=== PATIENT | female | born 1945 | race Caucasian/White ===

== ENCOUNTER → 2017-04-22 | Outpatient (CLI) | payer OTHER ==
[2013-08-13 09:34] VITALS: BP 130/98
[2017-04-22 15:38] LABS: BASOPHILS # (AUTO) 0.1 X10^3/uL (0.0-0.1); BASOPHILS % (AUTO) 0.7 % (0.2-1.0); EOSINOPHILS # (AUTO) 0.3 x10^3/uL (0.0-0.2); EOSINOPHILS % (AUTO) 3.1 % (0.9-2.9); HEMOGLOBIN 12.5 g/dL (12.0-16.0); LYMPHOCYTES # (AUTO) 3.3 X10^3/uL (1.3-2.9); LYMPHOCYTES % (AUTO) 29.5 % (21.0-51.0); MEAN CORPUSCULAR HGB CONC 32.8 g/dL (33.0-35.0); MEAN CORPUSCULAR VOLUME 85.4 fL (80.0-100.0); MEAN PLATELET VOLUME 7.7 fL (7.4-11.0); MONOCYTES # (AUTO) 0.8 x10^3/uL (0.3-0.8); MONOCYTES % (AUTO) 6.8 % (0.0-13.0); NEUTROPHILS # (AUTO) 6.8 x10^3/uL (2.2-4.8); NEUTROPHILS % (AUTO) 59.9 % (42.0-75.0); PLATELET COUNT 276 X10^3/uL (150.0-450.0); RED BLOOD COUNT 4.45 X10^6/uL (3.5-5.4); RED CELL DISTRIBUTION WIDTH 15.8 % (11.6-16.5); WHITE BLOOD COUNT 11.3 X10^3/uL (3.6-10.0)
[2017-04-22 15:48] LABS: ALANINE AMINOTRANSFERASE 16 Units/L (12-78); ALBUMIN 3.3 g/dL (3.4-5.0); ALKALINE PHOSPHATASE 87 Units/L (46-116); ASPARTATE AMINO TRANSFERASE 15 Units/L (15-37); BLOOD UREA NITROGEN 33 mg/dL (7-18); CALCIUM 9.4 mg/dL (8.5-10.1); CARBON DIOXIDE 26.1 mmol/L (21-32); CHLORIDE 102 mmol/L (98-107); CREATININE 1.61 mg/dL (0.55-1.02); GLUCOSE 99 mg/dL (65-99); SODIUM 134 mmol/L (136-145); TOTAL PROTEIN 8.2 g/dL (6.4-8.2); eGFR BLACK RACES 41 (>60); eGFR NON BLACK RACES 34 (>60)
[2017-04-22 16:33] LABS: ERYTHROCYTE SEDIMENTATION RATE 83 MM/HOUR (0-20)
--- NOTE | 2017-04-22 16:59 | RAD ---
HISTORY: Paroxysmally nocturnal dyspnea Study: PA and lateral chest Comparison: None Findings: The patient is status post median sternotomy and CABG. The heart is within normal limits in size. The thoracic aorta is calcified ectatic and dilated particular the arch. CT chest with contrast should b e considered for further evaluation of the thoracic aorta. The lungs are free of acute alveolar infil trates. There is elevation of the right hemidiaphragm and blunting of the right costophrenic angle wh ich could be due to fibrosis or E fusion. There is a rounded density projected over the thoracic spin e on the lateral view measuring 7.8 by 3.3 centimeters. This could represent loculated fluid or pleur al mass. This could also be evaluated with chest CT with contrast. IMPRESSION: Calcified ectatic and likely dilated thoracic aorta for which further evaluation with chest CT with c ontrast is recommended Pleural-based density overlying the thoracic spine on the lateral view which should also be evaluated with CT chest with contrast. Reported By:
--- NOTE | 2017-04-22 17:01 | CT ---
HISTORY: Mental status changes Study: CT brain without contrast Comparison: None Technique: Multiple axial images of the brain were obtained from the skull base to the vertex without administra tion of IV contrast. Automated dose control techniques were utilized. Findings: The ventricles are mildly enlarged and there is diffuse mild prominence of the cortical sulci. There is mild to moderate periventricular low density bilaterally. No intracranial hemorrhage or edema is s een and there is no extra-axial fluid collection or mass seen. The bones are intact. IMPRESSION: Mild atrophy and moderate chronic microischemic disease in the deep white matter with no acute intracranial abnormality seen. Reported By:
== END | disposition home or self-care (01) ==
LOC: RAD 15:00
PROVIDERS: ATTEND Nurse Practitioner Family
DX: I10 Essential (primary) hypertension (principal); R06.09 Other forms of dyspnea; R41.82 Altered mental status, unspecified; J98.4 Other disorders of lung
CPT/HCPCS: 36415; 70450; 71020; 80053; 85025; 85652; 86140

== ENCOUNTER → 2017-05-06 | Outpatient (CLI) | payer OTHER ==
[2013-08-13 09:34] VITALS: BP 130/98
[2017-05-06 08:32] LABS: CREATININE 1.51 mg/dL (0.55-1.02)
--- NOTE | 2017-05-06 09:43 | MRI ---
MRI Brain without contrast HISTORY: Headache, vomiting elevated blood pressure with amnesia Comparison:none available Technique: Multiplanar multi-sequence MRI of the brain was obtained utilizing standard departmental p rotocol. Sagittal and axial T1 weighted images were obtained. Axial T2 and flair weighted images we re performed as well. Axial diffusion weighted and ADC trace mapping was performed. Findings: Again noted is generalized cerebral atrophy with bilateral FLAIR and T2 signal hyperintensity surroun ding the ventricles and within the deep white matter bilaterally consistent with chronic microvascula r ischemic disease. The midline structures appear unremarkable. The evaluation of the brain parenchyma demonstrates no a bnormal signal characteristics to suggest intraparenchymal mass or hemorrhage. No extra-axial fluid collections are observed. The ventricular system appears symmetric and nondilated. The CP angle is normal in its appearance without brainstem mass or evidence for acoustic neuroma. The flow voids on both T1 and T2 weighted imaging appear unremarkable. Evaluation of the diffusion weighted imaging d oes not demonstrate abnormal signal characteristics to suggest acute ischemic change. The extracrani al structures are unremarkable. IMPRESSION: 1. Age related generalized cerebral atrophy with bilateral periventricular and deep white matter FLA IR and T2 signal hyperintensities most consistent with sequela of chronic microvascular ischemic dise ase. The remaining brain MRI is otherwise normal. Reported By:
--- NOTE | 2017-05-06 09:48 | CT ---
CT CHEST WITHOUT IV CONTRAST HISTORY: Suggestion of aneurysm on x-ray Comparison: CT 12/13/2014 Technique: Multiple axial images of the chest were obtained from the thoracic inlet to the upper abdo men. Dose reduction techniques including Automated Exposure Control (AEC) and adjustment of mA and kV were utlized. Findings: The evaluation of the mediastinal and vascular structures is diminished without the use of IV contras t. The heart is normal in size. No pericardial effusion. Severe 3 vessel coronary artery calcification . No suspicious lymph nodes. Ascending aorta measures 4.8 cm. Proximal descending thoracic aorta measu res 4.7 cm. These are stable since 12/13/2014. Partially visualized infrarenal abdominal aortic aneury sm measuring 5.4 cm. Stent appears to be in place. Redemonstration of loculated, thick-walled pleural fluid collection on series 3, image 39 along the p osterior right pleura measuring 8.3 x 4.5 cm, previously 8.4 x 3.4 cm. Airways are patent. No suspici ous pulmonary nodules or masses. Limited images of the upper abdomen are unremarkable. No aggressive osseous lesions. IMPRESSION: 1. Multiple foci of aneurysmal dilatation of the thoracic aorta as above . These are stable from 201 5 . 2. Stable loculated fluid collection in the posterior right chest since 2014. Reported By:
== END | disposition home or self-care (01) | DRG 948 ==
LOC: RAD 07:51
PROVIDERS: ATTEND Nurse Practitioner Family
DX: R41.3 Other amnesia (principal); R91.8 Other nonspecific abnormal finding of lung field; I71.2 Thoracic aortic aneurysm, without rupture
CPT/HCPCS: 36415; 70551; 71250; 82565; 84520; 95819

== ENCOUNTER 2017-05-18 13:19 | Emergency (ER) | payer OTHER ==
[2017-05-18 13:29] VITALS: BMI 24.0
--- NOTE | 2017-05-18 14:13 | DR.GENAD ---
HPI - PCP Primary Care Physician: Aaron - Complaint/Symptoms Chief Complaint Doctors Comments: Patient states that she has had HTN since 23 years of age, has been doin well until 1996 when she had ByPass surgery by Dr Parsons. Had had symptoms for five years prior to surgery. She was diagnosed with an aortic anurysm of the aorta had surgery and follow up two weeks; everything was fine. Patient states that she vomited x one this morning, stated that her BP was 200/189. She blurred vision nad a headache. She took one Goody Powder, headache went away. She reports that pulse and BP has been P72 and BP 130/89. [place] the intake her VS have not change. She has been worked up by Dr Florian to inclued EEG two weeks ago/ sleep study last week end. CT of brain two weeks ago Chest X ray. She stated that the only thing that she think of is that she is getting olded and things dont stay the black. Her blood pressure did not change during interview. Chief Complaint:: "I have been taking blood pressure medicine for a long time now. However, here recently it seems to be much higher than I am used to. She has been adjusting my medicine but it is still getting higher. This morning it was 200/189 so I got really affraid. I talked to Mrs. Quiroga and she told me to come on to the ER." Self Treatment fo Chief Complaint: Patient is taking RX for blood pressure: Bisoprolol 10MG BID. Bisoprolol 5MG BID. Clonodine Patches - Patient does not know the MG but has 2 on. - Source History Provided: Patient - Mode of Arrival Mode of Arrival: Ambulatory - Timing Onset of Chief Complaint: 05/04/17 PMH - PMH Past Medical History: Yes Past Medical History: Angina, Coronary Artery Disease, Hypertension, Dyslipidemia, Depression, Anxiety, Anemia, GERD, Arthritis Past Surgical History: Yes Surgical History: Angioplasty/Stents, CABG/Valve Surgery, Tonsillectomy - Family History History of Family Medical Conditions: Yes Family Medical History: Cancer - Social History Does patient currently use any type of tobacco product: No Have you used tobacco products in the last 12 months: No Type of Tobacco Use: None Does any household member use tobacco: No Alcohol Use: None Do you use any recreational Drugs:: No Lives With: Alone Lives Where: Home - infectious screening In the last 2 months have you had wt loss of >10#?: NO Have you had fever, night sweats or hemotysis?: No Have you traveled outside the country in the last 6 months?: No Isolation: Standard ROS - Review of Systems Eyes: No Symptoms Reported ENTM: No Symptoms Reported Respiratoy: No Symptoms Reported Cardiovascular: No Symptoms Reported Gastrointestinal/Abdominal: No Symptoms Reported Genitourinary: No Symptoms Reported Neurological: No Symptoms Reported Musculoskeletal: No Symptoms Reported Integumentary: No Symptoms Reported Hematologic/Lymphatic: No Symptoms Reported Endocrine: No Symptoms Reported Psychiatric: No Symptoms Reported All Other Systems: Reviewed and Negative PE - Vital Signs Vitals: Temperature 97.6 F Pulse Rate 71 Respiratory Rate 18 Blood Pressure [Right Arm] 132/86 Blood Pressure [Left Arm] 132/82 Blood Pressure 198/114 O2 Sat by Pulse Oximetry 98 - General Limitations: No Limitations General Appearance: Alert - Head Head Exam: Normal Inspection, Atraumatic - Eyes Eye exam: Normal Appearance, PERRL, EOMI - ENT ENT Exam: Normal Exam External Ear Exam: Normal External Inspection TM/Canal Exam: Bilateral Normal Nose Exam: Normal Nose Exam Mouth Exam: Normal Inspection Throat Exam: Normal Inspection - Neck Neck Exam: Normal Inspection - Chest Chest Inspection: Normal Inspection - Respiratory Respiratory Exam: Normal Lung Sounds Bilat Respiratory Exam: Bilateral Clear to Auscultation - Cardiovascular Cardiovascular Exam: Regular Rate, Normal Rhythm - Abdominal Exam Abdominal Exam: Normal Inspection, Normal Bowel Sounds Abdominal Tenderness: negative: RUQ, RLQ, LUQ, LLQ, Epigastrium, Suprapubic, Diffuse, Mild, Moderate, Severe, Other - Extremities Extremities Exam: Normal Inspection, Full ROM - Back Back Exam: Normal Inspection, Full ROM - Neurologic Neurological Exam: Alert, Oriented X3, CN II-XII Intact - Psychiatric Psychiatric Exam: Normal Affect - Skin Skin Exam: Warm, Dry ROR - Labs Reviewed Result Diagrams: 05/18/17 14:34 05/18/17 14:34 Laboratory: WBC 11.5 X10^3/uL (3.6-10.0) H 05/18/17 14:34 RBC 4.61 X10^6/uL (3.5-5.4) 05/18/17 14:34 Hgb 13.1 g/dL (12.0-16.0) 05/18/17 14:34 Hct 39.2 % (36.0-47.0) 05/18/17 14:34 MCV 85.0 fL (80.0-100.0) 05/18/17 14:34 MCH 28.4 pg (27.0-34.0) 05/18/17 14:34 MCHC 33.4 g/dL (33.0-35.0) 05/18/17 14:34 RDW 16.0 % (11.6-16.5) 05/18/17 14:34 Plt Count 350 X10^3/uL (150.0-450.0) 05/18/17 14:34 MPV 7.3 fL (7.4-11.0) L 05/18/17 14:34 Neut % 64.9 % (42.0-75.0) 05/18/17 14:34 Lymph % 24.8 % (21.0-51.0) 05/18/17 14:34 [place] % 7.5 % (0.0-13.0) 05/18/17 14:34 Eos % 2.0 % (0.9-2.9) 05/18/17 14:34 Baso % 0.8 % (0.2-1.0) 05/18/17 14:34 Neut # 7.5 x10^3/uL (2.2-4.8) H 05/18/17 14:34 Lymph # 2.9 X10^3/uL (1.3-2.9) 05/18/17 14:34 [place] # 0.9 x10^3/uL (0.3-0.8) H 05/18/17 14:34 Eos # 0.2 x10^3/uL (0.0-0.2) 05/18/17 14:34 Baso # 0.1 X10^3/uL (0.0-0.1) 05/18/17 14:34 Absolute Nucleated RBC 0.0 /100WBC 05/18/17 14:34 Sodium 138 mmol/L (136-145) 05/18/17 14:34 Corrected Sodium TNP 05/18/17 14:34 Potassium 4.3 mmol/L (3.5-5.1) 05/18/17 14:34 Chloride 102 mmol/L (98-107) 05/18/17 14:34 Carbon Dioxide 28.7 mmol/L (21-32) 05/18/17 14:34 BUN 20 mg/dL (7-18) H 05/18/17 14:34 Creatinine 1.52 mg/dL (0.55-1.02) H 05/18/17 14:34 Est GFR (MDRD) Af Amer 43 (>60) L 05/18/17 14:34 Est GFR (MDRD) Non-Af 36 (>60) L 05/18/17 14:34 Glucose 107 mg/dL (65-99) H 05/18/17 14:34 Calcium 10.1 mg/dL (8.5-10.1) 05/18/17 14:34 Corrected Calcium 10.7 mg/dL (8.5-10.1) H 05/18/17 14:34 Total Bilirubin 0.20 mg/dL (0.2-1.0) 05/18/17 14:34 AST 18 Units/L (15-37) 05/18/17 14:34 ALT 16 Units/L (12-78) 05/18/17 14:34 Alkaline Phosphatase 94 Units/L (46-116) 05/18/17 14:34 Total Protein 8.4 g/dL (6.4-8.2) H 05/18/17 14:34 Albumin 3.3 g/dL (3.4-5.0) L 05/18/17 14:34 Globulin 5.1 g/dL (2.5-4.5) H 05/18/17 14:34 Albumin/Globulin Ratio 0.6 Ratio (1.1-2.1) L 05/18/17 14:34 - XRAY XRAY Interpreted by: Radiologist - Discharge Plan Condition: Stable - Follow ups/Referrals Follow ups/Referrals: AMY BARILLAS [Primary Care Provider] - 3 days - Instructions
[2017-05-18 14:47] LABS: BASOPHILS # (AUTO) 0.1 X10^3/uL (0.0-0.1); BASOPHILS % (AUTO) 0.8 % (0.2-1.0); EOSINOPHILS # (AUTO) 0.2 x10^3/uL (0.0-0.2); HEMATOCRIT 39.2 % (36.0-47.0); HEMOGLOBIN 13.1 g/dL (12.0-16.0); LYMPHOCYTES # (AUTO) 2.9 X10^3/uL (1.3-2.9); LYMPHOCYTES % (AUTO) 24.8 % (21.0-51.0); MEAN CORPUSCULAR HEMOGLOBIN 28.4 pg (27.0-34.0); MEAN CORPUSCULAR HGB CONC 33.4 g/dL (33.0-35.0); MEAN PLATELET VOLUME 7.3 fL (7.4-11.0); MONOCYTES # (AUTO) 0.9 x10^3/uL (0.3-0.8); MONOCYTES % (AUTO) 7.5 % (0.0-13.0); NEUTROPHILS # (AUTO) 7.5 x10^3/uL (2.2-4.8); NEUTROPHILS % (AUTO) 64.9 % (42.0-75.0); PLATELET COUNT 350 X10^3/uL (150.0-450.0); RED BLOOD COUNT 4.61 X10^6/uL (3.5-5.4); WHITE BLOOD COUNT 11.5 X10^3/uL (3.6-10.0)
[2017-05-18 15:08] LABS: ALANINE AMINOTRANSFERASE 16 Units/L (12-78); ALBUMIN 3.3 g/dL (3.4-5.0); ALKALINE PHOSPHATASE 94 Units/L (46-116); ASPARTATE AMINO TRANSFERASE 18 Units/L (15-37); BLOOD UREA NITROGEN 20 mg/dL (7-18); CALCIUM 10.1 mg/dL (8.5-10.1); CARBON DIOXIDE 28.7 mmol/L (21-32); CHLORIDE 102 mmol/L (98-107); COR CA(FOR HYPOALB) 10.7 mg/dL (8.5-10.1); CREATININE 1.52 mg/dL (0.55-1.02); SODIUM 138 mmol/L (136-145); TOTAL PROTEIN 8.4 g/dL (6.4-8.2); eGFR BLACK RACES 43 (>60); eGFR NON BLACK RACES 36 (>60)
[2017-05-18 16:59] VITALS: BP 159/84
== END 2017-05-18 17:04 | disposition home or self-care (01) ==
LOC: ER 13:34
DX: I10 Essential (primary) hypertension (principal)
CPT/HCPCS: 36415; 80053; 85025; 99282; 99283; A4222

== ENCOUNTER → 2017-09-10 | Outpatient (CLI) | payer OTHER | LOC: LAB 19:40 | PROVIDERS: ATTEND Psychiatry & Neurology Neurology | DX: H60.311 Diffuse otitis externa, right ear (principal); B95.7 Other staphylococcus as the cause of diseases classified elsewhere | CPT/HCPCS: 87070; 87077; 87186 ==

== ENCOUNTER 2022-12-05 10:27 | Observation (INO) ==
[2022-12-05 10:43] VITALS: BMI 27.3
[2022-12-05] MEDS ORDERED: NS 1,000 ML IV 1,000 ML ONE ×2 (10:48→14:34)
[2022-12-05] MEDS ORDERED: NS 1,000 ML IV 1,000 ML IV ONE ×2 (10:48→14:32)
[2022-12-05 10:53] LABS: ABG BASE EXCESS -3.8 mmol/L (-2.0-2.0); ABG HCO3 22.2 mmol/L (22-26)
--- NOTE | 2022-12-05 11:00 | EKG ---
Test Reason : TACHYCARDIA Blood Pressure : */* mmHG Vent. Rate : 113 BPM Atrial Rate : 113 BPM P-R Int : 166 ms QRS Dur : 98 ms QT Int : 380 ms P-R-T Axes : 19 18 116 degrees QTc Int : 521 ms Sinus tachycardia Septal infarct , age undetermined Prolonged QT Abnormal ECG No previous ECGs available Confirmed by Linwood Stock ([id number]) on 12/05/2022 9:10:15 PM Referred By: Confirmed By: Linwood Stock
[2022-12-05 11:04] LABS: BASOPHILS # (AUTO) 0.1 X10^3/uL (0.0-0.1); BASOPHILS % (AUTO) 0.6 % (0.2-1.0); EOSINOPHILS # (AUTO) 0.5 x10^3/uL (0.0-0.2); HEMATOCRIT 38.4 % (36.0-47.0); HEMOGLOBIN 12.7 g/dL (12.0-16.0); LYMPHOCYTES # (AUTO) 3.1 X10^3/uL (1.3-2.9); LYMPHOCYTES % (AUTO) 24.9 % (21.0-51.0); MEAN CORPUSCULAR HEMOGLOBIN 28.7 pg (27.0-34.0); MEAN CORPUSCULAR HGB CONC 33.1 g/dL (33.0-35.0); MEAN CORPUSCULAR VOLUME 86.7 fL (80.0-100.0); MEAN PLATELET VOLUME 6.9 fL (7.4-11.0); MONOCYTES % (AUTO) 8.4 % (0.0-13.0); NEUTROPHILS # (AUTO) 7.6 x10^3/uL (2.2-4.8); NEUTROPHILS % (AUTO) 62.1 % (42.0-75.0); RED BLOOD COUNT 4.43 X10^6/uL (3.5-5.4); WHITE BLOOD COUNT 12.2 X10^3/uL (3.6-10.0)
--- NOTE | 2022-12-05 11:20 | DR.GENAD ---
HPI Time Seen Time Seen by Provider: 12/05/22 11:00 PCP Primary Care Physician: LUIS ANGEL RODRIGUEZ Complaint/Symptoms Chief Complaint Doctors Comments: DEMINISHED APPETITE WITH NAUSEA AND VOMITING OVER PAST MONTH. HAD 10 LB WEIGHT LOSS AND NOW HYPOTENSIVE AND HYPOXIC. DENIES CHEST PAIN. Chief Complaint:: PT STATES THAT OVER THE PAST MONTH SHE HAS HAD DECREASED APPETITE AND WHEN SHE DOES EAT SHE HAS LOTS OF NAUSEA AND VOMITING. OVER THE PAST WEEK PT'S SYMPTOMS HAS WORSENED AND SHE HAS HAD WORSENING GENERALIZED WEAKNESS AND FATIGUE. DENIES ANY NEW PAIN OR FEVER. PT WAS SEEN BY PCP THIS MORNING AND WAS TACHYCARDIC, HYPOXIC AND HYPOTENSIVE IN OFFICE Self Treatment fo Chief Complaint: PT WAS SEEN BY PCP AND STARTED ON APPETITE STIMULANT AND ZOFRAN WITH NO IMPROVEMENT OF SYMPTOMS IN THE PAST MONTH. COVID-19 Coronavirus risk:travel/contact w/high risk person: No Has patient experienced Coronavirus symptoms: No Source History Provided: Patient Mode of Arrival Mode of Arrival: Ambulatory Timing Onset of Chief Complaint: 12/05/22 PMH PMH Past Medical History: Yes Past Medical History: Anemia, Anxiety, Arthritis, Coronary Artery Disease, Depression, Dyslipidemia, GERD, Hypertension and Sleep Apnea Past Medical History Comment: RHEUMATOID ARTHRITIS, DIVERTICULITIS, HERNIA,ANEURYSM OF INFRARENAL ABDOMINAL AORTA, AORTIC ANEURYSM, RLS, THYROID NODULE Past Surgical History: Yes Surgical History: Angioplasty/Stents, CABG/Valve Surgery, Cholecystectomy, Ortho Surgery and Tonsillectomy Past Surgical History Comment: REPAIR OF INFRARENAL AAA, BILATERAL TKA, RIGHT ELBOW SURGERY, TUBAL LIGATION, FIBROMYALGIA Family History History of Family Medical Conditions: Yes Family Medical History: Cancer, [place], Coronary Artery Disease and Hypertension Social History Does patient currently use any type of tobacco product: No Have you used tobacco products in the last 12 months: No Type of Tobacco Use: None Does any household member use tobacco: No Alcohol Use: None Do you use any recreational Drugs:: No Lives With: Family Lives Where: Home Travel Risk Coronavirus risk:travel/contact w/high risk person: No Has patient experienced Coronavirus symptoms: No Infectious screening In the last 2 months have you had wt loss of >10#?: NO Have you had fever, night sweats or hemotysis?: No Have you traveled outside the country in the last 6 months?: No Isolation: Standard ROS Review of Systems Constitutional: Weakness, Loss of Appetite and Other (HYPOXIA AND HYPOTENSION WITH TACHYCARDIA) Eyes: No Symptoms Reported ENTM: No Symptoms Reported Respiratoy: Short of Breath Cardiovascular: Other (TACHYCARDIA) Gastrointestinal/Abdominal: Nausea and Vomiting Genitourinary: No Symptoms Reported Neurological: No Symptoms Reported Musculoskeletal: No Symptoms Reported Integumentary: No Symptoms Reported Hematologic/Lymphatic: No Symptoms Reported Endocrine: No Symptoms Reported Psychiatric: No Symptoms Reported PE Vital Signs Vitals: Temperature 97.5 F Pulse Rate 107 Respiratory Rate 20 Blood Pressure [Right Arm] 132/86 Blood Pressure [Left Arm] 159/84 Blood Pressure 87/63 O2 Sat by Pulse Oximetry 99 General Limitations: Physical Limitation (MILD LIMITATIONS) General Appearance: In Distress (MILD DISTRESS) Head Head Exam: Normal Inspection, Atraumatic and Normocephalic Eyes Eye exam: Normal Appearance, PERRL and EOMI ENT ENT Exam: Normal Exam, Normal Oropharynx and Normal External Ear Exam External Ear Exam: Normal External Inspection TM/Canal Exam: Bilateral: Normal Nose Exam: Normal Nose Exam Mouth Exam: Normal Inspection Throat Exam: Normal Inspection Neck Neck Exam: Normal Inspection and Full ROM Chest Chest Inspection: Normal Inspection and Symmetric Chest Wall Rise Respiratory Respiratory Exam: Normal Lung Sounds Bilat Respiratory Exam: Bilateral: Clear to Auscultation Cardiovascular Cardiovascular Exam: Tachycardia Abdominal Exam Abdominal Exam: Normal Inspection, Normal Bowel Sounds and Soft Extremities Extremities Exam: Normal Inspection and Full ROM Back Back Exam: Normal Inspection Neurologic Neurological Exam: Alert, Oriented X3 and CN II-XII Intact Psychiatric Psychiatric Exam: Depressed Skin Skin Exam: Warm, Dry and Intact MDM Differential Diagnosis Differential Diagnosis: DEHYDRATION,ELECTROLYTE IMBALANCE,URTI,UTI,CHF,GERD COURSE Treatment Treatment: PATIENT REMAINED RELATIVELY STABLE DURING ER VISIT. HAD BP ON 91/40 SYSTOLIC AND SHE WAS GIVEN A ONE LITER BOLUS OF NACL AND IT INCREASED TO 101/60 BUT DECREASED AGAIN TO 87/63 AND ANOTHER LITER BOLUS OF FLUID WAS STARTED. PATIENT HAD A SODIUM OF 131 ON LAB EVALUATION AND HAD A SLIGHT UTI. CARDIAC ENZYMES WERE NEGATIVE AND BNP WAS 34.5. ABG SHOWED PO2 OF 52 AND INITIAL [address] WHEELER WAS CALLED AT 1444 AND HE STATED THAT HE WOULD ACCEPT THE PTIEN TO ADMISSION FOR DEHYDRATION,HYPOXIA,HYPONATREMIA AND UTI AND HYPOTENSION. PATIENT WAS TOLD OF THE PLAN TO ADMIT AND SHE WAS AGREABLE TO THE ADMISSION. ROR Labs Reviewed Laboratory Results Reviewed?: Yes Result Diagrams: 12/05/22 10:56 12/05/22 10:56 Laboratory: WBC 12.2 X10^3/uL (3.6-10.0) H 12/05/22 10:56 RBC 4.43 X10^6/uL (3.5-5.4) 12/05/22 10:56 Hgb 12.7 g/dL (12.0-16.0) 12/05/22 10:56 Hct 38.4 % (36.0-47.0) 12/05/22 10:56 MCV 86.7 fL (80.0-100.0) 12/05/22 10:56 MCH 28.7 pg (27.0-34.0) 12/05/22 10:56 MCHC 33.1 g/dL (33.0-35.0) 12/05/22 10:56 RDW 15.0 % (11.6-16.5) 12/05/22 10:56 Plt Count 383 X10^3/uL (150.0-450.0) 12/05/22 10:56 Plt Count Comment Adequate (ADEQUATE) 12/05/22 10:56 MPV 6.9 fL (7.4-11.0) L 12/05/22 10:56 Neut % (Auto) 62.1 % (42.0-75.0) 12/05/22 10:56 Lymph % (Auto) 24.9 % (21.0-51.0) 12/05/22 10:56 [place] % (Auto) 8.4 % (0.0-13.0) 12/05/22 10:56 Eos % (Auto) 4.0 % (0.9-2.9) H 12/05/22 10:56 Baso % (Auto) 0.6 % (0.2-1.0) 12/05/22 10:56 Neut # (Auto) 7.6 x10^3/uL (2.2-4.8) H 12/05/22 10:56 Lymph # (Auto) 3.1 X10^3/uL (1.3-2.9) H 12/05/22 10:56 [place] # (Auto) 1.0 x10^3/uL (0.3-0.8) H 12/05/22 10:56 Eos # (Auto) 0.5 x10^3/uL (0.0-0.2) H 12/05/22 10:56 Baso # (Auto) 0.1 X10^3/uL (0.0-0.1) 12/05/22 10:56 Absolute Nucleated RBC 0.0 /100WBC 12/05/22 10:56 Total Counted 100 12/05/22 10:56 Neutrophils % (Manual) 66 % (39-76) 12/05/22 10:56 Lymphocytes % (Manual) 22 % (13-43) 12/05/22 10:56 Monocytes % (Manual) 10 % (4-9) H 12/05/22 10:56 Eosinophils % (Manual) 2 % (0-6) 12/05/22 10:56 Plt Morphology Comment Normal (NORMAL) 12/05/22 10:56 RBC Morphology Normal (NORMAL) 12/05/22 10:56 Sample Site [facility] 12/05/22 10:43 ABG pH 7.320 (7.35-7.45) L 12/05/22 10:43 ABG pCO2 43.0 mmHg (35.0-45.0) 12/05/22 10:43 ABG pO2 52.0 mmHg (80.0-100.0) L 12/05/22 10:43 ABG HCO3 22.2 mmol/L (22-26) 12/05/22 10:43 ABG O2 Saturation 83.0 % (90-100) L* 12/05/22 10:43 ABG Base Excess -3.8 mmol/L (-2.0-2.0) L 12/05/22 10:43 Bert Test N/a 12/05/22 10:43 A-a Gradient 44.0 mmHg 12/05/22 10:43 FiO2 21.0 12/05/22 10:43 Blood Gas Comments Pt israel well elj 12/05/22 10:43 Sodium 131 mmol/L (136-145) L 12/05/22 10:56 Corrected Sodium 131 mmol/L (136-145) L 12/05/22 10:56 Potassium 3.9 mmol/L (3.5-5.1) 12/05/22 10:56 Chloride 94 mmol/L (98-107) L 12/05/22 10:56 Carbon Dioxide 24.3 mmol/L (21-32) 12/05/22 10:56 BUN 11 mg/dL (7-18) 12/05/22 10:56 Creatinine 1.62 mg/dL (0.55-1.02) H 12/05/22 10:56 Est GFR (MDRD) Af Amer 40 (>60) L 12/05/22 10:56 Est GFR (MDRD) Non-Af 33 (>60) L 12/05/22 10:56 Glucose 113 mg/dL (65-99) H 12/05/22 10:56 Calcium 8.8 mg/dL (8.5-10.1) 12/05/22 10:56 Corrected Calcium 9.7 mg/dL (8.5-10.1) 12/05/22 10:56 Total Bilirubin 0.60 mg/dL (0.2-1.0) 12/05/22 10:56 AST 24 Units/L (15-37) 12/05/22 10:56 ALT 12 Units/L (12-78) 12/05/22 10:56 Alkaline Phosphatase 126 Units/L (46-116) H 12/05/22 10:56 Creatine Kinase 126 Units/L (26-192) 12/05/22 10:56 Troponin I High Sens 11.2 ng/L (4.0-60.0) 12/05/22 10:56 B-Natriuretic Peptide 34.5 pg/mL (0-79) 12/05/22 10:56 Total Protein 6.6 g/dL (6.4-8.2) 12/05/22 10:56 Albumin 2.9 g/dL (3.4-5.0) L 12/05/22 10:56 Globulin 3.7 g/dL (2.5-4.5) 12/05/22 10:56 Albumin/Globulin Ratio 0.8 Ratio (1.1-2.1) L 12/05/22 10:56 Lipase 43 Units/L (73-393) L 12/05/22 10:56 Free T4 1.42 ng/dL (0.76-1.46) 12/05/22 10:56 TSH 3rd Generation 3.928 uIU/mL (0.358-3.74) H 12/05/22 10:56 Specimen Type Clean catch urine 12/05/22 13:07 Urine Color Pale yellow (YELLOW) 12/05/22 13:07 Urine Appearance Clear (CLEAR) 12/05/22 13:07 Urine pH 5.0 (5.0 - 8.0) 12/05/22 13:07 Ur Specific [place] 1.005 (1.000-1.030) 12/05/22 13:07 Urine Protein 1+ (NEGATIVE) 12/05/22 13:07 Urine Glucose (UA) Negative (NEGATIVE) 12/05/22 13:07 Urine Ketones Negative (NEGATIVE) 12/05/22 13:07 Urine Blood Negative (NEGATIVE) 12/05/22 13:07 Urine Nitrite Negative (NEGATIVE) 12/05/22 13:07 Urine Bilirubin Negative (NEGATIVE) 12/05/22 13:07 Urine Urobilinogen Normal (NORMAL) 12/05/22 13:07 Ur Leukocyte Esterase 1+ (NEGATIVE) 12/05/22 13:07 Urine RBC 0-2 /HPF (0-3) 12/05/22 13:07 Urine WBC 5-10 /HPF (0-5) A 12/05/22 13:07 Ur Squamous Epith Cells Few /HPF (NEGATIVE) 12/05/22 13:07 Urine Bacteria Trace /HPF (NEGATIVE) 12/05/22 13:07 Ur Culture Indicated? No/not indicated 12/05/22 13:07 SARS-CoV-2 (PCR) Negative (NEGATIVE) 12/05/22 11:20 Influenza Type A (PCR) Negative (NEGATIVE) 12/05/22 11:20 Influenza Type B (PCR) Negative (NEGATIVE) 12/05/22 11:20 RSV (PCR) Negative (NEGATIVE) 12/05/22 11:20 XRAY XRAY Interpreted by: Radiologist (MILD NONOBSTRUCTING DILATATION OF TRANSVERSE COLON. PA CHEST NO ACUTE FINDINGS.) Opioid Opioid Risk Tool Age (Steffen box if 16-45): No History of Preadolescent Sexual Abuse: No Total: 0 Total Score Risk Category: Low Risk Copyright: Anjum BASS predicting aberrant behaviors Discharge Plan Diagnosis Discharge Problem: Hypotension, Dehydration, Hyponatremia, Hypoxia, UTI (urinary tract infection) Discharge Plan Patient Disposition: 09 ADMITTED INPATIENT Condition: Stable Orders to Discharge Patient Discharge Orders: Transfer (Routine); Ordered 12/05/22 Ordered By: Fernando Nettles
[2022-12-05 11:25] LABS: ALBUMIN 2.9 g/dL (3.4-5.0); CALCIUM 8.8 mg/dL (8.5-10.1); CARBON DIOXIDE 24.3 mmol/L (21-32); COR CA(FOR HYPOALB) 9.7 mg/dL (8.5-10.1); CREATININE 1.62 mg/dL (0.55-1.02); TOTAL PROTEIN 6.6 g/dL (6.4-8.2); TSH (3RD GENERATION) 3.928 uIU/mL (0.358-3.74)
[2022-12-05 11:36] LABS: PLATELET MORPHOLOGY COMMENT NORMAL (NORMAL)
[2022-12-05] MEDS ORDERED: PROTONIX INJ 40 MG VIAL ONE (12:18)
[2022-12-05 12:31] LABS: FREE T4 (FREE THYROXINE) 1.42 ng/dL (0.76-1.46)
[2022-12-05] MEDS ORDERED: PROTONIX INJ 40 MG VIAL IVP ONE (12:32)
[2022-12-05 13:21] LABS: BILIRUBIN,URINE NEGATIVE (NEGATIVE); BLOOD/HEMOGLOBIN,URINE NEGATIVE (NEGATIVE); GLUCOSE, URINE NEGATIVE (NEGATIVE); KETONES,URINE NEGATIVE (NEGATIVE); LEUKOCYTE ESTERASE ,URINE 1+ (NEGATIVE); NITRITES,URINE NEGATIVE (NEGATIVE); PROTEIN,URINE 1+ (NEGATIVE); UROBILINOGEN,URINE NORMAL (NORMAL)
[2022-12-05 13:29] LABS: APPEARANCE,URINE CLEAR (CLEAR); COLOR,URINE PALE YELLOW (YELLOW)
[2022-12-05 13:30] LABS: RBC,URINE 0-2 /HPF (0-3); SQUAMOUS EPITHELIAL CELL,UR FEW /HPF (NEGATIVE)
[2022-12-05 13:31] LABS: BACTERIA,URINE TRACE /HPF (NEGATIVE)
[2022-12-05] MEDS ORDERED: ROCEPHIN VIAL 1 GRAM 1 G in NS 100 ML IV 100 ML IV ONE (15:00)
[2022-12-05] MEDS ORDERED: ROCEPHIN VIAL 1 GRAM IV ONE (15:07)
[2022-12-05] MEDS ORDERED: ROCEPHIN VIAL 1 GRAM ONE (15:08)
--- NOTE | 2022-12-05 15:10 | RAD ---
HISTORYHypertension vomitingSTUDYAbdomen series four viewsCOMPARISONCT abdomen October 07, 2022FINDINGSPA chest: No acute findings.Abdomen series: Supine and upright views demonstrate mild dilatation of the transverse colon. There is no evidence for mass formation, visceral enlargement or abnormal calcification. The upright view does not include the dome of the right diaphragm.IMPRESSIONMild nonobstructive dilatation of transverse colon. Postsurgical findings in the abdomen. Free air/pneumoperitoneum cannot be reliably excluded, see above.Electronically signed by: KATHY REICH (Dec 05, 2022 15:08:58)
[2022-12-05] MEDS ORDERED: ZOFRAN TAB 4 MG PO PRN (15:46)
[2022-12-05] MEDS: NORCO 7.5/325 MG TAB PO PRN ×2 (17:08→23:30)
[2022-12-05] MEDS: NS 1,000 ML IV 1,000 ML IV SCH (17:55)
[2022-12-05] MEDS ORDERED: PERIACTIN TAB 4 MG PO SCH (21:00)
[2022-12-05] MEDS: PERIACTIN TAB 4 MG PO SCH (21:38)
[2022-12-05] MEDS: LIPITOR TAB 20 MG PO SCH (21:39)
[2022-12-05] MEDS: DURAGESIC 100 mcg/HR PATCH TD SCH (21:39)
[2022-12-05] MEDS: CHECK PATCH XX SCH (21:48)
[2022-12-06] MEDS: NS 1,000 ML IV 1,000 ML IV SCH ×5 (03:31→21:26)
[2022-12-06 05:25] LABS: BASOPHILS % (AUTO) 0.5 % (0.2-1.0); EOSINOPHILS # (AUTO) 0.4 x10^3/uL (0.0-0.2); EOSINOPHILS % (AUTO) 6.4 % (0.9-2.9); HEMATOCRIT 34.3 % (36.0-47.0); HEMOGLOBIN 11.5 g/dL (12.0-16.0); LYMPHOCYTES # (AUTO) 1.7 X10^3/uL (1.3-2.9); LYMPHOCYTES % (AUTO) 24.6 % (21.0-51.0); MEAN CORPUSCULAR HEMOGLOBIN 28.9 pg (27.0-34.0); MEAN CORPUSCULAR HGB CONC 33.6 g/dL (33.0-35.0); MEAN PLATELET VOLUME 7.4 fL (7.4-11.0); MONOCYTES # (AUTO) 0.7 x10^3/uL (0.3-0.8); MONOCYTES % (AUTO) 9.5 % (0.0-13.0); NEUTROPHILS # (AUTO) 4.1 x10^3/uL (2.2-4.8); RED BLOOD COUNT 3.99 X10^6/uL (3.5-5.4); RED CELL DISTRIBUTION WIDTH 14.7 % (11.6-16.5)
[2022-12-06 05:39] LABS: ALANINE AMINOTRANSFERASE 9 Units/L (12-78); ALBUMIN 2.3 g/dL (3.4-5.0); ALKALINE PHOSPHATASE 108 Units/L (46-116); ASPARTATE AMINO TRANSFERASE 18 Units/L (15-37); BLOOD UREA NITROGEN 7 mg/dL (7-18); CALCIUM 7.8 mg/dL (8.5-10.1); CARBON DIOXIDE 26.5 mmol/L (21-32); CHLORIDE 101 mmol/L (98-107); COR CA(FOR HYPOALB) 9.2 mg/dL (8.5-10.1); CREATININE 1.11 mg/dL (0.55-1.02); SODIUM 136 mmol/L (136-145); TOTAL PROTEIN 5.5 g/dL (6.4-8.2); eGFR NON BLACK RACES 51 (>60)
[2022-12-06] MEDS: NORCO 7.5/325 MG TAB PO PRN ×2 (06:54→18:06)
[2022-12-06] MEDS: PREDNISONE TAB 10 MG PO SCH (08:21)
[2022-12-06] MEDS: LIPITOR TAB 20 MG PO SCH (08:21)
[2022-12-06] MEDS ORDERED: PATIENT'S HOME MEDICATION (Duloxetine 20 mg capsule,delayed release(DR/EC)) PO SCH (09:00)
[2022-12-06] MEDS ORDERED: LIPITOR TAB 20 MG PO SCH (09:00)
[2022-12-06] MEDS: CYMBALTA PO SCH (09:28)
--- NOTE | 2022-12-06 10:09 | RAD ---
HISTORYNAUSEA, HYPOXIASTUDYACUTE ABDOMEN x-ray SERIES, one view chest and two views abdomenCOMPARISONX-ray 12/05/2022FINDINGSPostoperative changes are seen in the chest. Mild interstitial or reticular nodular densities are seen in the left lower lung, unchanged. No evidence of free intraperitoneal air.Persistent mild colonic is seen with new mild small-bowel dilation with air. This may just be swallowed air but could be seen with gastroenteritis or mild ileus. Bowel obstruction is not thought likely.Stents are seen in the iliac vessels. No suspicious air-fluid levels are seen.IMPRESSIONMild small and large bowel air is seen without suspicious air-fluid levels. This could be swallowed air but consider possible mild ileus or gastroenteritis.Possible mild pneumonia or chronic interstitial lung disease changes in the left lower lung.Electronically signed by: Fitz Mas (Dec 06, 2022 10:08:27)
[2022-12-06] MEDS ORDERED: LEVAQUIN PREMIX IV 500 MG 500 MG/100 ML BAG IV ONE (15:29)
[2022-12-06] MEDS: LEVAQUIN PREMIX IV 500 MG 500 MG/100 ML BAG IV SCH (15:37)
--- NOTE | 2022-12-06 16:01 | DR.H&P ---
H&P - History & Physical for Day of: H&P Date: 12/05/22 - Chief Complaint Chief Complaint: SHORTNESS OF BREATH, GENERALIZED WEAKNESS, FATIGUE, DECREASED APPETITE, NAUSEA AND VOMITING, AND WEIGHT LOSS - History of Present Illness History of Present Illness: IS A 77 YEAR OLD PATIENT OF OURS. SHE PRESENTED TO THE ER WITH COMPLAINTS OF SHORTNESS OF BREATH, GENERALIZED WEAKNESS, FATIGUE, DECREASED APPETITE, NAUSEA AND VOMITING, AND WEIGHT LOSS. SYMPTOMS STARTED ABOUT A MONTH AGO, BUT HAVE PROGRESSIVELY WORSENED OVER THE PAST WEEK. SHE DENIES ANY TYPE OF PAIN OR FEVER. SHE REPORTS HAVING OXYGEN SATURATIONS IN THE 80s WHILE AT HOME AND DECREASED BLOOD PRESSURE. SHE WAS STARTED ON AN APPETITE STIMULANT AND ZOFRAN IN THE OFFICE, HOWEVER, PATIENT REPORTS NO IMPROVEMENT IN THE PAST MONTH. HER PMH INCLUDES: ANEMIA, ANXIETY, CAD, DEPRESSION, DYSLIPIDEMIA, GERD, HTN, SLEEP APNEA, RHEUMATOID ARTHRITIS, DIVERTICULITIS, HERNIA, ANEURYSM OF INFRARENAL ABDOMINAL AORTA, AORTIC ANEURYSM, RLS, THYROID NODULE. SURGICAL HISTORY INCLUDES STENTS, CABG, CHOLECYSTECTOMY, TONSILLECTOMY, REPAIR OF INFRARENAL AAA, BILATERAL TKA, RIGHT ELBOW SURGERY, TUBAL LIGATION, FIBROMYALGIA. ON ARRIVAL TO THE HOSPITAL, HER VITALS WERE: 97.5-140-18-87%ROOM AIR-91/56. LABS WERE OBTAINED. WBC 12.2, RBC 4.43, HGB 12.7, HCT 38.4, PLT COUNT 383, SODIUM 131, POTASSIUM 3.9, CHLORIDE 94, BUN 11, CREATININE 1.62, GLUCOSE 113, CALCIUM 8.8, AST 24, ALT 12, ALK PHOS 126, BNP 34.5, TOTAL PROTEIN 6.6, ALBUMIN 2.9, LIPASE 43, TSH 3.928. ABG OBTAINED AND REVEALED: PH 7.320, PC02 43, P02 52, HC03 22.2, 02 SAT 83, BASE EXCESS -3.8, A-A GRADIENT 44, FI02 21.0. URINALYSIS WAS OBTAINED AND REVEALED: WBC 5-10, RBC 0-2, BACTERIA TRACE. COVID, INFLUENZA, AND RSV NEGATIVE. AN ABDOMINAL SERIES WAS OBTAINED AND REVEALED: Mild nonobstructive dilatation of transverse colon. Postsurgical findings in the abdomen. Free air/pneumoperitoneum cannot be reliably excluded. EKG REVELED SINUS TACHYCARDIA WITH HR 113. OXYGEN WAS APPLIED VIA NASAL CANNULA AT 2 LPM. SATURATIONS INCREASED TO 96%. SHE WAS GIVEN TWO, ONE LITER NORMAL SALINE BOLUS, PROTONIX 40MG IV X 1, AND ROCEPHIN 1G IV X 1. SHE WAS ADMITTED TO THE HOSPITAL FOR FURTHER EVALUATION AND TREATMENT OF BRONCHOPNEUMONIA, DEHYDRATION, HYPONATREMIA, HYPOXIA, HYPOTENSION. SHE WAS STARTED ON NORMAL SALINE AT 125 ML/HR, LEVAQUIN 500MG IV DAILY, DUONEBS TID. HER HOME MEDICATIONS OF LIPITOR 20MG DAILY, PERIACTIN 4MG HS, CYMBALTA 30MG DAILY, DURAGESIC PATCH Q72H, NORCO 7.5/325MG Q6H PRN, ZOFRAN 4MG PO Q8H PRN, AND PREDISONE 10MG DAILY. WE WILL OBTAIN BLOOD CULTURES AND AN AIT PANEL. OTHERWISE, WE WILL FOLLOW-UP WITH AM LABS AND CHEST XRAY AND CONTINUE TO MONITOR. TIME SPENT ON CLINICAL ASSESSMENT, REVIEWING LABS AND IMAGING, DECISION MAKING, AND DOCUMENTATION GREATER THAN 75 MINUTES. - Past Medical History Past Medical History: Coronary Artery Disease, Hypertension, Dyslipidemia, Depression, Anxiety, Anemia, GERD, Arthritis, Sleep Apnea Additional Medical History: Abdominal Aortic Aneurysm - Past Surgical History Surgical History: Angioplasty/Stents, CABG/Valve Surgery, Cholecystectomy, Ortho Surgery, Tonsillectomy - Family History Family Medical History: Hypertension - Social History Does patient currently use any type of tobacco product: No Have you used tobacco products in the last 12 months: No Type of Tobacco Use: None Does any household member use tobacco: No Alcohol Use: None - Medications Home Medications: No Known Drug Allergies Allergy (Unknown, Verified 10/27/22 08:55) - Review of Systems Constitutional: Weakness, Malaise Eyes: No Symptoms Reported ENT: No Symptoms Reported Respiratory: Shortness of Breath Cardiovascular: No Symptoms Reported Gastrointestinal: Nausea, Vomiting Genitourinary: No Symptoms Reported Musculoskeletal: No Symptoms Reported Skin: No Symptoms Reported Neurological: Weakness - Physical Exam Vital Signs: Temperature 98.0 F Pulse Rate 102 Respiratory Rate 22 Blood Pressure [Right Arm] 132/86 Blood Pressure [Left Arm] 159/84 Blood Pressure 115/71 O2 Sat by Pulse Oximetry 100 Oriented: Normal Eyes: Normal Ear: Normal Nose: Normal Throat: Normal Respiratory: Diminished Throughout Cardiovascular: Tachycardia : Normal Auscultation: Bowel Sounds: Normal Palpation: Normal Tenderness: Normal Skin: Normal Musculoskeletal: Normal Psychiatric: Normal Mood Description: Calm Affect: Normal Speech Pattern: Clear - Assessment/Plan (1) Bronchopneumonia Status: Acute Plan: ADMIT, SUPPLEMENTAL OXYGEN, NORMAL SALINE AT 125 ML/HR, LEVAQUIN 500MG IV DAILY, DUONEBS TID. HER HOME MEDICATIONS OF LIPITOR 20MG DAILY, PERIACTIN 4MG HS, CYMBALTA 30MG DAILY, DURAGESIC PATCH Q72H, NORCO 7.5/325MG Q6H PRN, ZOFRAN 4MG PO Q8H PRN, AND PREDISONE 10MG DAILY (2) Hypoxia Status: Acute (3) Dehydration Status: Acute (4) Hyponatremia Status: Acute (5) Hypotension Qualifiers: Hypotension type: unspecified hypotension type Qualified Code(s): I95.9 - Hypotension, unspecified Status: Acute (6) GERD (gastroesophageal reflux disease) Qualifiers: Esophagitis presence: esophagitis presence not specified Qualified Code(s): K21.9 - Gastro-esophageal reflux disease without esophagitis Status: Acute (7) Anemia Qualifiers: Anemia type: unspecified type Qualified Code(s): D64.9 - Anemia, unspecified Status: Acute (8) Gastroesophageal reflux disease Status: None (9) CAD (coronary artery disease) Qualifiers: Coronary Disease-Associated Artery/Lesion type: bypass graft [place] vs. transplanted heart: [place] heart Associated angina: unspecified whether angina present Qualified Code(s): I25.810 - Atherosclerosis of coronary artery bypass graft(s) without angina pectoris Status: Acute - Allergies Allergies/Adverse Reactions: Allergies Allergy/AdvReac Type Severity Reaction Status Date / Time No Known Drug Allergies Allergy Unknown Verified 10/27/22 08:55
[2022-12-06] MEDS: PLAVIX PO SCH (17:36)
[2022-12-06] MEDS ORDERED: K-RIDER 10 MEQ/NS 100 ML 10 MEQ/100 ML BAG IV PRN (18:33)
[2022-12-06] MEDS ORDERED: MICRO K EXTEN CAP 10 MEQ PO PRN (18:33)
[2022-12-06] MEDS ORDERED: POTASSIUM CHL 40 MEQ/NS 0.45% 500 ML IV PRN (18:33)
[2022-12-06] MEDS ORDERED: POTASSIUM CHL 60 MEQ/NS 0.45% 500 ML IV PRN (18:33)
[2022-12-06] MEDS ORDERED: K-DUR TAB 20 MEQ PO PRN (18:33)
[2022-12-06] MEDS ORDERED: POTASSIUM CHLORIDE LIQ 20 MEQ UDC PO PRN (18:33)
[2022-12-06] MEDS ORDERED: KLOR-CON PO PRN (18:33)
[2022-12-06] MEDS: PERIACTIN TAB 4 MG PO SCH (20:49)
[2022-12-06] MEDS: PEPCID TAB 20 MG PO SCH (20:49)
[2022-12-06] MEDS: COLACE CAP 100 MG PO SCH (20:50)
[2022-12-06] MEDS: CHECK PATCH XX SCH (20:52)
[2022-12-06] MEDS: ROBITUSSIN DM PO PRN (21:08)
[2022-12-06] MEDS: NEURONTIN TAB 600 MG PO SCH (21:08)
[2022-12-06] MEDS: DUONEB 0.5 MG/3 MG (3 mL) NEB SCH (21:10)
[2022-12-06] MEDS: MAGNESIUM SULFATE 1 GRAM/100 mL PREMIX 1 G/100 ML BAG IV PRN ×2 (21:48→23:01)
[2022-12-07] MEDS: NEURONTIN TAB 600 MG PO SCH ×3 (05:00→21:06)
[2022-12-07 05:05] LABS: BASOPHILS % (AUTO) 0.5 % (0.2-1.0); EOSINOPHILS % (AUTO) 0.6 % (0.9-2.9); HEMATOCRIT 32.4 % (36.0-47.0); LYMPHOCYTES # (AUTO) 1.4 X10^3/uL (1.3-2.9); LYMPHOCYTES % (AUTO) 20.1 % (21.0-51.0); MEAN CORPUSCULAR HEMOGLOBIN 29.1 pg (27.0-34.0); MEAN CORPUSCULAR HGB CONC 33.9 g/dL (33.0-35.0); MEAN CORPUSCULAR VOLUME 85.9 fL (80.0-100.0); MEAN PLATELET VOLUME 7.6 fL (7.4-11.0); MONOCYTES # (AUTO) 0.6 x10^3/uL (0.3-0.8); NEUTROPHILS % (AUTO) 70.8 % (42.0-75.0); RED BLOOD COUNT 3.77 X10^6/uL (3.5-5.4); RED CELL DISTRIBUTION WIDTH 14.6 % (11.6-16.5)
[2022-12-07 05:24] LABS: ALANINE AMINOTRANSFERASE 9 Units/L (12-78); ALBUMIN 2.3 g/dL (3.4-5.0); ALKALINE PHOSPHATASE 112 Units/L (46-116); ASPARTATE AMINO TRANSFERASE 16 Units/L (15-37); BLOOD UREA NITROGEN 8 mg/dL (7-18); CARBON DIOXIDE 26.3 mmol/L (21-32); CHLORIDE 101 mmol/L (98-107); COR CA(FOR HYPOALB) 9.4 mg/dL (8.5-10.1); MAGNESIUM 2.1 mg/dL (2.0-2.9); SODIUM 134 mmol/L (136-145); TOTAL PROTEIN 5.8 g/dL (6.4-8.2); eGFR NON BLACK RACES 51 (>60)
[2022-12-07] MEDS: DUONEB 0.5 MG/3 MG (3 mL) NEB SCH ×4 (06:04→21:00)
[2022-12-07] MEDS: NORCO 7.5/325 MG TAB PO PRN ×4 (08:02→21:06)
--- NOTE | 2022-12-07 08:50 | RAD ---
HISTORYSOB hypoxiaSTUDYAP chestCOMPARISONFebruary 2022FINDINGSHeart size is stable with sternal wires and no change in the previously documented aortic dilatation/aneurysm. Manubrial sternal wires are fractured but not displaced.The lungs and pleural spaces are clear.IMPRESSIONNo change or acute findings.Electronically signed by: KATHY REICH (Dec 07, 2022 08:48:42)
[2022-12-07] MEDS: LEVAQUIN PREMIX IV 500 MG 500 MG/100 ML BAG IV SCH (09:40)
[2022-12-07] MEDS: PEPCID TAB 20 MG PO SCH ×2 (09:40→21:06)
[2022-12-07] MEDS: LIPITOR TAB 20 MG PO SCH (09:40)
[2022-12-07] MEDS: CYMBALTA PO SCH (09:40)
[2022-12-07] MEDS: PLAVIX PO SCH (09:40)
[2022-12-07] MEDS: MILK OF MAGNESIA PO SCH (09:40)
[2022-12-07] MEDS: PREDNISONE TAB 10 MG PO SCH (09:40)
[2022-12-07] MEDS: NS 1,000 ML IV 1,000 ML IV SCH ×4 (09:40→21:17)
--- NOTE | 2022-12-07 17:08 | CT ---
EXAM: HEAD CT WITHOUT INTRAVENOUS CONTRASTHISTORY: Traumatic fall head injury.TECHNIQUE: Spiral axial CT images are obtained through the brain without the administration of intravenous contrast. Additional sagittal and coronal reformatted images are reconstructed.DOSIMETRY: Total DLP 888.54 mGycm; CTDI 48 mGyCOMPARISON: None available.FINDINGS:There are parenchymal lucencies within the white matter tracks of the centrum semiovale, consistent with chronic sequela of atherosclerotic microvascular ischemic disease. Severe atherosclerosis of the intracranial ICAs and vertebral arteries is seen. Consider follow-up MRA as clinically warranted.There is diffuse cerebral cortical atrophy. The centrum semiovale, basal ganglia, cerebellum, and brainstem are otherwise grossly unremarkable for a noncontrast CT scan. There is no acute intracranial hemorrhage, gross acute infarction, mass lesion, midline shift, or hydrocephalus seen. No extra-axial mass or abnormal fluid collection noted.The calvarium is intact. There is partial fluid opacification of the right mastoid air cells in keeping with acute or chronic mastoiditis. The partially imaged paranasal sinuses, middle ear cavities and mastoid air cells are otherwise clear.IMPRESSION:1. No skull fracture, intracranial hemorrhage, mass lesion, midline shift, or hydrocephalus seen.2. Chronic microvascular ischemic disease, but no discernible acute infarction seen. Consider followup MRI with DWI/ADC imaging to rule out occult acute infarction if clinically warranted.3. Severe atherosclerosis of the intracranial ICAs and vertebral arteries is seen. Consider follow-up MRA as clinically warranted.Electronically signed by: Radha Renae (Dec 07, 2022 17:07:10)
--- NOTE | 2022-12-07 17:29 | CT ---
CT pelvis without contrastIndication: Pain after recent fallTECHNIQUEHelical images through the pelvis without contrast. Coronal and sagittal reformats provided.FINDINGSMild symphysis pubis DJD. Bipolar left hip arthroplasty hardware noted. Right femoral neck fracture repair hardware noted with femoral neck screw and shaft ana paula. Moderate lumbar spine disc degenerative change and facet arthropathy noted. Mild SI joint and symphysis pubis DJD noted. Degenerative change seen at the coccyx, without displaced fracture identified. Neural foramina encroachment bilaterally at L4 through S1 noted.Aortoiliac stents noted. Colonic diverticulosis noted.IMPRESSION1. Postsurgical change, without acute fracture.2. Degenerative changes and other findings as above.Electronically signed by: ALEX YORK (Dec 07, 2022 17:28:10)
[2022-12-07] MEDS: PERIACTIN TAB 4 MG PO SCH (21:06)
[2022-12-07] MEDS: COLACE CAP 100 MG PO SCH (21:06)
[2022-12-07] MEDS: ROBITUSSIN DM PO PRN (21:07)
[2022-12-07] MEDS: CHECK PATCH XX SCH (21:09)
[2022-12-08] MEDS: NS 1,000 ML IV 1,000 ML IV SCH ×4 (00:49→15:28)
[2022-12-08] MEDS: NORCO 7.5/325 MG TAB PO PRN ×3 (03:00→19:52)
[2022-12-08] MEDS: DUONEB 0.5 MG/3 MG (3 mL) NEB SCH ×3 (05:00→21:32)
[2022-12-08 05:12] LABS: BASOPHILS % (AUTO) 0.3 % (0.2-1.0); EOSINOPHILS % (AUTO) 0.6 % (0.9-2.9); HEMATOCRIT 31.4 % (36.0-47.0); HEMOGLOBIN 10.5 g/dL (12.0-16.0); LYMPHOCYTES # (AUTO) 0.8 X10^3/uL (1.3-2.9); LYMPHOCYTES % (AUTO) 14.1 % (21.0-51.0); MEAN CORPUSCULAR HEMOGLOBIN 29.1 pg (27.0-34.0); MEAN CORPUSCULAR HGB CONC 33.5 g/dL (33.0-35.0); MEAN CORPUSCULAR VOLUME 86.9 fL (80.0-100.0); MEAN PLATELET VOLUME 7.3 fL (7.4-11.0); MONOCYTES # (AUTO) 0.5 x10^3/uL (0.3-0.8); MONOCYTES % (AUTO) 7.8 % (0.0-13.0); NEUTROPHILS # (AUTO) 4.5 x10^3/uL (2.2-4.8); NEUTROPHILS % (AUTO) 77.2 % (42.0-75.0); RED BLOOD COUNT 3.61 X10^6/uL (3.5-5.4); RED CELL DISTRIBUTION WIDTH 14.9 % (11.6-16.5); WHITE BLOOD COUNT 5.8 X10^3/uL (3.6-10.0)
[2022-12-08] MEDS: NEURONTIN TAB 600 MG PO SCH ×3 (05:15→21:16)
[2022-12-08 05:27] LABS: ALANINE AMINOTRANSFERASE 12 Units/L (12-78); ALBUMIN 2.2 g/dL (3.4-5.0); ALKALINE PHOSPHATASE 108 Units/L (46-116); ASPARTATE AMINO TRANSFERASE 13 Units/L (15-37); BLOOD UREA NITROGEN 6 mg/dL (7-18); CALCIUM 7.6 mg/dL (8.5-10.1); CARBON DIOXIDE 28.5 mmol/L (21-32); CHLORIDE 104 mmol/L (98-107); COR NA(FOR HYPERGLY) 136 mmol/L (136-145); CREATININE 0.98 mg/dL (0.55-1.02); SODIUM 136 mmol/L (136-145); TOTAL PROTEIN 5.5 g/dL (6.4-8.2); eGFR NON BLACK RACES 59 (>60)
[2022-12-08] MEDS: LIPITOR TAB 20 MG PO SCH (08:39)
[2022-12-08] MEDS: MILK OF MAGNESIA PO SCH (08:39)
[2022-12-08] MEDS: PREDNISONE TAB 10 MG PO SCH (08:40)
[2022-12-08] MEDS: PLAVIX PO SCH (08:40)
[2022-12-08] MEDS: CYMBALTA PO SCH (08:40)
[2022-12-08] MEDS: PEPCID TAB 20 MG PO SCH ×2 (08:40→21:16)
--- NOTE | 2022-12-08 08:47 | RAD ---
HISTORYHypoxia SOBSTUDYAP chestCOMPARISONApril 2022FINDINGSSimilar normal heart size with sternal wires and stable appearance of dilated/aneurysmal aorta. The lungs and pleural spaces remain clear.IMPRESSIONNo change or acute findings.Electronically signed by: KATHY REICH (Dec 08, 2022 08:46:26)
[2022-12-08] MEDS: LEVAQUIN PREMIX IV 500 MG 500 MG/100 ML BAG IV SCH (09:00)
--- NOTE | 2022-12-08 10:55 | PCM.PROG ---
Progress Note - Progress Note for Day of Date of Exam: 12/07/22 - Subjective Subjective: IS CURRENTLY OBSERVATION STATUS FOR TREATMENT OF BRONCHOPNEUMONIA, HYPOXIA, DEHYDRATION, HYPONATREMIA, AND HYPOTENSION. SHE HAS A PMH OF ANEMIA, ANXIETY, CAD, DEPRESSION, DYSLIPIDEMIA, GERD, HTN, SLEEP APNEA, RHEUMATOID ARTHRITIS, DIVERTICULITIS, HERNIA, ANEURYSM OF INFRARENAL ABDOMINAL AORTA, AORTIC ANEURYSM, RLS, THYROID NODULE. TODAY, SHE IS ALERT AND ORIENTED, LYING IN BED ON MORNING ROUNDS. SHE IS ABLE TO ANSWER QUESTIONS AND FOLLOW COMMANDS APPROPRIATELY. SHE CONTINUES TO COMPLAINS OF SHORTNESS OF BREATH, COUGH, AND GENERALIZED WEAKNESS TODAY. SHE DENIES ANY EPISODES OF NAUSEA OR VOMITING THIS MORNING. HER COUGH HAS BEEN NON-PRODUCTIVE. ON EXAMINATION, HEART IS REGULAR IN RATE AND RHYTHM. BILATERAL LUNGS ARE NOTED WITH SCATTERED WHEEZES. ABDOMEN IS ROUND, SOFT, AND NON-TENDER WITH NORMAL BOWEL SOUNDS NOTED IN ALL QUADRANTS. GOOD MOVEMENT NOTED IN ALL EXTREMITIES WITH NO EDEMA NOTED. HER VITALS THIS MORNING ARE: 98.5-370-08-100%-101/74. SHE IS CURRENTLY UTILIZING OXYGEN VIA NASAL CANNULA AT 2 LITERS/MINUTE. LABS WERE OBTAINED. WBC 7.0, RBC 3.77, HGB 11.0, HCT 32.4, PLT COUNT 242, SODIUM 134, POTASSIUM 4.3, CHLORIDE 101, CARBON DIOXIDE 26.3, BUN 8, CREATININE 1.10, GLUCOSE 88, CALCIUM 8.0, MAGNESIUM 2.1, AST 16, ALT 9, ALK PHOS 112, TOTAL PROTEIN 5.8, ALBUMIN 2.3. BLOOD CULTURES ARE PENDING. SHE IS CURRENTLY RECEIVING NORMAL SALINE AT 125 ML/HR, LEVAQUIN 500MG IV DAILY, DUONEBS TID. HER HOME MEDICATIONS OF LIPITOR 20MG DAILY, PERIACTIN 4MG HS, CYMBALTA 30MG DAILY, DURAGESIC PATCH Q72H, NORCO 7.5/325MG Q6H PRN, ZOFRAN 4MG PO Q8H PRN, AND PREDISONE 10MG DAILY. WE WILL CONTINUE WITH CURRENT PLAN OF CARE TODAY. OTHERWISE, WE WILL FOLLOW-UP WITH AM LABS AND CONTINUE TO MONITOR. TIME SPENT ON CLINICAL ASSESSMENT, REVIWING LABS AND IMAGING, DECISION MAKING, AND DOCUMENTATION GREATER THAN 45 MINUTES. - Past Medical Family Social History Past Med/Fam/Surg Hx: No changes since H&P Allergies: Allergies No Known Drug Allergies Allergy (Unknown, Verified 10/27/22 08:55) Onset Date: 12/31/2011 - Review of Systems ROS: No change since H&P - Vital Signs and I&O's Vital Signs: Temperature 97.7 F Pulse Rate 92 Respiratory Rate 12 Blood Pressure [Right Arm] 132/86 Blood Pressure [Left Arm] 159/84 Blood Pressure 118/61 O2 Sat by Pulse Oximetry 100 Intake and Output: Intake & Output 12/05/22 12/06/22 12/07/22 12/08/22 11:59 11:59 11:59 11:59 Intake Total 1438 / 1438 4818 / 4818 6031 / 6031 Output Total 3 Balance 1429 / 1429 4815 / 4815 6031 / 6031 - Physical Exam Oriented: Normal Eyes: Normal Ear: Normal Nose: Normal Throat: Normal Respiratory: Wheezes Cardiovascular: Normal : Normal Auscultation: Bowel Sounds: Normal Palpation: Normal Tenderness: Normal Skin: Normal Musculoskeletal: Normal Psychiatric: Normal Mood Description: Calm Affect: Normal Speech Pattern: Clear - Laboratory and Diagnostics Result Diagrams: 12/08/22 04:20 12/08/22 04:20 Labs: Laboratory WBC 5.8 X10^3/uL (3.6-10.0) 12/08/22 04:20 RBC 3.61 X10^6/uL (3.5-5.4) 12/08/22 04:20 Hgb 10.5 g/dL (12.0-16.0) L 12/08/22 04:20 Hct 31.4 % (36.0-47.0) L 12/08/22 04:20 MCV 86.9 fL (80.0-100.0) 12/08/22 04:20 MCH 29.1 pg (27.0-34.0) 12/08/22 04:20 MCHC 33.5 g/dL (33.0-35.0) 12/08/22 04:20 RDW 14.9 % (11.6-16.5) 12/08/22 04:20 Plt Count 235 X10^3/uL (150.0-450.0) 12/08/22 04:20 Plt Count Comment Adequate (ADEQUATE) 12/05/22 10:56 MPV 7.3 fL (7.4-11.0) L 12/08/22 04:20 Neut % (Auto) 77.2 % (42.0-75.0) H 12/08/22 04:20 Lymph % (Auto) 14.1 % (21.0-51.0) L 12/08/22 04:20 [place] % (Auto) 7.8 % (0.0-13.0) 12/08/22 04:20 Eos % (Auto) 0.6 % (0.9-2.9) L 12/08/22 04:20 Baso % (Auto) 0.3 % (0.2-1.0) 12/08/22 04:20 Neut # (Auto) 4.5 x10^3/uL (2.2-4.8) 12/08/22 04:20 Lymph # (Auto) 0.8 X10^3/uL (1.3-2.9) L 12/08/22 04:20 [place] # (Auto) 0.5 x10^3/uL (0.3-0.8) 12/08/22 04:20 Eos # (Auto) 0.0 x10^3/uL (0.0-0.2) 12/08/22 04:20 Baso # (Auto) 0.0 X10^3/uL (0.0-0.1) 12/08/22 04:20 Absolute Nucleated RBC 0.1 /100WBC 12/08/22 04:20 Total Counted 100 12/05/22 10:56 Neutrophils % (Manual) 66 % (39-76) 12/05/22 10:56 Lymphocytes % (Manual) 22 % (13-43) 12/05/22 10:56 Monocytes % (Manual) 10 % (4-9) H 12/05/22 10:56 Eosinophils % (Manual) 2 % (0-6) 12/05/22 10:56 Plt Morphology Comment Normal (NORMAL) 12/05/22 10:56 RBC Morphology Normal (NORMAL) 12/05/22 10:56 Sample Site [facility] 12/05/22 10:43 ABG pH 7.320 (7.35-7.45) L 12/05/22 10:43 ABG pCO2 43.0 mmHg (35.0-45.0) 12/05/22 10:43 ABG pO2 52.0 mmHg (80.0-100.0) L 12/05/22 10:43 ABG HCO3 22.2 mmol/L (22-26) 12/05/22 10:43 ABG O2 Saturation 83.0 % (90-100) L* 12/05/22 10:43 ABG Base Excess -3.8 mmol/L (-2.0-2.0) L 12/05/22 10:43 Bert Test N/a 12/05/22 10:43 A-a Gradient 44.0 mmHg 12/05/22 10:43 FiO2 21.0 12/05/22 10:43 Blood Gas Comments Pt israel well elj 12/05/22 10:43 Sodium 136 mmol/L (136-145) 12/08/22 04:20 Corrected Sodium 136 mmol/L (136-145) 12/08/22 04:20 Potassium 4.5 mmol/L (3.5-5.1) 12/08/22 04:20 Chloride 104 mmol/L (98-107) 12/08/22 04:20 Carbon Dioxide 28.5 mmol/L (21-32) 12/08/22 04:20 BUN 6 mg/dL (7-18) L 12/08/22 04:20 Creatinine 0.98 mg/dL (0.55-1.02) 12/08/22 04:20 Est GFR (MDRD) Af Amer > 60 (>60) 12/08/22 04:20 Est GFR (MDRD) Non-Af 59 (>60) 12/08/22 04:20 Glucose 120 mg/dL (65-99) H 12/08/22 04:20 Calcium 7.6 mg/dL (8.5-10.1) L 12/08/22 04:20 Corrected Calcium 9.0 mg/dL (8.5-10.1) 12/08/22 04:20 Magnesium 2.1 mg/dL (2.0-2.9) 12/07/22 04:15 Total Bilirubin 0.30 mg/dL (0.2-1.0) 12/08/22 04:20 AST 13 Units/L (15-37) L 12/08/22 04:20 ALT 12 Units/L (12-78) 12/08/22 04:20 Alkaline Phosphatase 108 Units/L (46-116) 12/08/22 04:20 Creatine Kinase 126 Units/L (26-192) 12/05/22 10:56 Troponin I High Sens 11.2 ng/L (4.0-60.0) 12/05/22 10:56 B-Natriuretic Peptide 34.5 pg/mL (0-79) 12/05/22 10:56 Total Protein 5.5 g/dL (6.4-8.2) L 12/08/22 04:20 Albumin 2.2 g/dL (3.4-5.0) L 12/08/22 04:20 Globulin 3.3 g/dL (2.5-4.5) 12/08/22 04:20 Albumin/Globulin Ratio 0.7 Ratio (1.1-2.1) L 12/08/22 04:20 Lipase 43 Units/L (73-393) L 12/05/22 10:56 Free T4 1.42 ng/dL (0.76-1.46) 12/05/22 10:56 TSH 3rd Generation 3.928 uIU/mL (0.358-3.74) H 12/05/22 10:56 Specimen Type Clean catch urine 12/05/22 13:07 Urine Color Pale yellow (YELLOW) 12/05/22 13:07 Urine Appearance Clear (CLEAR) 12/05/22 13:07 Urine pH 5.0 (5.0 - 8.0) 12/05/22 13:07 Ur Specific Kramer 1.005 (1.000-1.030) 12/05/22 13:07 Urine Protein 1+ (NEGATIVE) 12/05/22 13:07 Urine Glucose (UA) Negative (NEGATIVE) 12/05/22 13:07 Urine Ketones Negative (NEGATIVE) 12/05/22 13:07 Urine Blood Negative (NEGATIVE) 12/05/22 13:07 Urine Nitrite Negative (NEGATIVE) 12/05/22 13:07 Urine Bilirubin Negative (NEGATIVE) 12/05/22 13:07 Urine Urobilinogen Normal (NORMAL) 12/05/22 13:07 Ur Leukocyte Esterase 1+ (NEGATIVE) 12/05/22 13:07 Urine RBC 0-2 /HPF (0-3) 12/05/22 13:07 Urine WBC 5-10 /HPF (0-5) A 12/05/22 13:07 Ur Squamous Epith Cells Few /HPF (NEGATIVE) 12/05/22 13:07 Urine Bacteria Trace /HPF (NEGATIVE) 12/05/22 13:07 Ur Culture Indicated? No/not indicated 12/05/22 13:07 SARS-CoV-2 (PCR) Negative (NEGATIVE) 12/05/22 11:20 Influenza Type A (PCR) Negative (NEGATIVE) 12/05/22 11:20 Influenza Type B (PCR) Negative (NEGATIVE) 12/05/22 11:20 RSV (PCR) Negative (NEGATIVE) 12/05/22 11:20 - Plan (1) Bronchopneumonia Status: Acute Plan: SUPPLEMENTAL OXYGEN, NORMAL SALINE AT 125 ML/HR, LEVAQUIN 500MG IV DAILY, DUONEBS TID. HER HOME MEDICATIONS OF LIPITOR 20MG DAILY, PERIACTIN 4MG HS, CYMBALTA 30MG DAILY, DURAGESIC PATCH Q72H, NORCO 7.5/325MG Q6H PRN, ZOFRAN 4MG PO Q8H PRN, AND PREDISONE 10MG DAILY (2) Hypoxia Status: Acute (3) Dehydration Status: Acute (4) Hyponatremia Status: Acute (5) Hypotension Status: Acute Qualifiers: Hypotension type: unspecified hypotension type Qualified Code(s): I95.9 - Hypotension, unspecified (6) GERD (gastroesophageal reflux disease) Status: Acute Qualifiers: Esophagitis presence: esophagitis presence not specified Qualified Code(s): K21.9 - Gastro-esophageal reflux disease without esophagitis (7) Anemia Status: Acute Qualifiers: Anemia type: unspecified type Qualified Code(s): D64.9 - Anemia, unspecified (8) Gastroesophageal reflux disease Status: None (9) CAD (coronary artery disease) Status: Acute Qualifiers: Coronary Disease-Associated Artery/Lesion type: bypass graft [place] vs. transplanted heart: [place] heart Associated angina: unspecified whether angina present Qualified Code(s): I25.810 - Atherosclerosis of coronary artery bypass graft(s) without angina pectoris
[2022-12-08] MEDS: LOVENOX INJ 40 MG SYR SC SCH (11:05)
--- NOTE | 2022-12-08 11:24 | PCM.PROG ---
Progress Note - Progress Note for Day of Date of Exam: 12/08/22 - Subjective Subjective: IS CURRENTLY OBSERVATION STATUS FOR TREATMENT OF BRONCHOPNEUMONIA, HYPOXIA, DEHYDRATION, HYPONATREMIA, AND HYPOTENSION. SHE HAS A PMH OF ANEMIA, ANXIETY, CAD, DEPRESSION, DYSLIPIDEMIA, GERD, HTN, SLEEP APNEA, RHEUMATOID ARTHRITIS, DIVERTICULITIS, HERNIA, ANEURYSM OF INFRARENAL ABDOMINAL AORTA, AORTIC ANEURYSM, RLS, THYROID NODULE. TODAY, SHE IS ALERT AND ORIENTED, LYING IN BED ON MORNING ROUNDS. SHE IS ABLE TO ANSWER QUESTIONS AND FOLLOW COMMANDS APPROPRIATELY. SHE CONTINUES TO COMPLAIN OF SHORTNESS OF BREATH, COUGH, AND GENERALIZED WEAKNESS. ADDITIONALLY, SHE COMPLAINS OF SOME HIP PAIN FOLLOWING A FALL IN HER ROOM YESTERDAY. SHE ALSO HIT HER HEAD AT THAT TIME. SHE DENIES ANY EPISODES OF NAUSEA OR VOMITING THIS MORNING. HER COUGH HAS BEEN NON-PRODUCTIVE. ON EXAMINATION, HEART IS REGULAR IN RATE AND RHYTHM. BILATERAL LUNGS ARE NOTED WITH SCATTERED WHEEZES. ABDOMEN IS ROUND, SOFT, AND NON-TENDER WITH NORMAL BOWEL SOUNDS NOTED IN ALL QUADRANTS. GOOD MOVEMENT NOTED IN ALL EXTREMITIES WITH NO EDEMA NOTED. A BRAIN CT WAS OBTAINED FOLLOWING HER FALL YESTERDAY. IT REVEALED: 1. No skull fracture, intracranial hemorrhage, mass lesion, midline shift, or hydrocephalus seen. 2. Chronic microvascular ischemic disease, but no discernible acute infarction seen. Consider followup MRI with DWI/ADC imaging to rule out occult acute infarction if clinically warranted. 3. Severe atherosclerosis of the intracranial ICAs and vertebral arteries is seen. Consider follow-up MRA as clinically warranted. PELVIS CT WAS ALSO OBTAINED AND REVEALED: Mild symphysis pubis DJD. Bipolar left hip arthroplasty hardware noted. Right femoral neck fracture repair hardware noted with femoral neck screw and shaft ana paula. Moderate lumbar spine disc degenerative change and facet arthropathy noted. Mild SI joint and symphysis pubis DJD noted. Degenerative change seen at the coccyx, without displaced fracture identified. Neural foramina encroachment bilaterally at L4 through S1 noted. HER VITALS THIS MORNING ARE: 97.7-98-12-100%-118/61. LABS WERE OBTAINED. WBC 5.8, RBC 3.61, HGB 10.5, HCT 31.4, PLT COUNT 235, SODIUM 136, POTASSIUM 4.5, CHLORIDE 104, BUN 6, CREATININE 0.98, GLUCOSE 120, CALCIUM 7.6, AST 13, ALT 12, ALK PHOS 108, TOTAL PROTEIN 5.5, ALBUMIN 2.2. BLOOD CULTURES ARE PENDING. SHE IS CURRENTLY RECEIVING NORMAL SALINE AT 125 ML/HR, LEVAQUIN 500MG IV DAILY, DUONEBS TID. HER HOME MEDICATIONS OF LIPITOR 20MG DAILY, PERIACTIN 4MG HS, CYMBALTA 30MG DAILY, DURAGESIC PATCH Q72H, NORCO 7.5/325MG Q6H PRN, ZOFRAN 4MG PO Q8H PRN, AND PREDNISONE 10MG DAILY. WE WILL CONTINUE WITH CURRENT PLAN OF CARE TODAY. WE WILL HAVE PHYSICAL THERAPY EVALUATE HER. OTHERWISE, WE WILL FOLLOW-UP WITH AM LABS AND CONTINUE TO MONITOR. TIME SPENT ON CLINICAL ASSESSMENT, REVIWING LABS AND IMAGING, DECISION MAKING, AND DOCUMENTATION GREATER THAN 45 MINUTES. - Past Medical Family Social History Past Med/Fam/Surg Hx: No changes since H&P Allergies: Allergies No Known Drug Allergies Allergy (Unknown, Verified 10/27/22 08:55) Onset Date: 12/31/2011 - Review of Systems ROS: No change since H&P - Vital Signs and I&O's Vital Signs: Temperature 97.7 F Pulse Rate 92 Respiratory Rate 12 Blood Pressure [Right Arm] 132/86 Blood Pressure [Left Arm] 159/84 Blood Pressure 118/61 O2 Sat by Pulse Oximetry 100 Intake and Output: Intake & Output 12/05/22 12/06/22 12/07/22 12/08/22 11:59 11:59 11:59 11:59 Intake Total 1438 / 1438 4818 / 4818 6031 / 6031 Output Total 3 / Balance 1429 / 1429 4815 / 4815 6031 / 6031 - Physical Exam Oriented: Normal Eyes: Normal Ear: Normal Nose: Normal Throat: Normal Respiratory: Wheezes Cardiovascular: Normal : Normal Auscultation: Bowel Sounds: Normal Palpation: Normal Tenderness: Normal Skin: Normal Musculoskeletal: Normal Psychiatric: Normal Mood Description: Calm Affect: Normal Speech Pattern: Clear - Laboratory and Diagnostics Result Diagrams: 12/08/22 04:20 12/08/22 04:20 Labs: Laboratory WBC 5.8 X10^3/uL (3.6-10.0) 12/08/22 04:20 RBC 3.61 X10^6/uL (3.5-5.4) 12/08/22 04:20 Hgb 10.5 g/dL (12.0-16.0) L 12/08/22 04:20 Hct 31.4 % (36.0-47.0) L 12/08/22 04:20 MCV 86.9 fL (80.0-100.0) 12/08/22 04:20 MCH 29.1 pg (27.0-34.0) 12/08/22 04:20 MCHC 33.5 g/dL (33.0-35.0) 12/08/22 04:20 RDW 14.9 % (11.6-16.5) 12/08/22 04:20 Plt Count 235 X10^3/uL (150.0-450.0) 12/08/22 04:20 Plt Count Comment Adequate (ADEQUATE) 12/05/22 10:56 MPV 7.3 fL (7.4-11.0) L 12/08/22 04:20 Neut % (Auto) 77.2 % (42.0-75.0) H 12/08/22 04:20 Lymph % (Auto) 14.1 % (21.0-51.0) L 12/08/22 04:20 [place] % (Auto) 7.8 % (0.0-13.0) 12/08/22 04:20 Eos % (Auto) 0.6 % (0.9-2.9) L 12/08/22 04:20 Baso % (Auto) 0.3 % (0.2-1.0) 12/08/22 04:20 Neut # (Auto) 4.5 x10^3/uL (2.2-4.8) 12/08/22 04:20 Lymph # (Auto) 0.8 X10^3/uL (1.3-2.9) L 12/08/22 04:20 [place] # (Auto) 0.5 x10^3/uL (0.3-0.8) 12/08/22 04:20 Eos # (Auto) 0.0 x10^3/uL (0.0-0.2) 12/08/22 04:20 Baso # (Auto) 0.0 X10^3/uL (0.0-0.1) 12/08/22 04:20 Absolute Nucleated RBC 0.1 /100WBC 12/08/22 04:20 Total Counted 100 12/05/22 10:56 Neutrophils % (Manual) 66 % (39-76) 12/05/22 10:56 Lymphocytes % (Manual) 22 % (13-43) 12/05/22 10:56 Monocytes % (Manual) 10 % (4-9) H 12/05/22 10:56 Eosinophils % (Manual) 2 % (0-6) 12/05/22 10:56 Plt Morphology Comment Normal (NORMAL) 12/05/22 10:56 RBC Morphology Normal (NORMAL) 12/05/22 10:56 Sample Site Rb 12/05/22 10:43 ABG pH 7.320 (7.35-7.45) L 12/05/22 10:43 ABG pCO2 43.0 mmHg (35.0-45.0) 12/05/22 10:43 ABG pO2 52.0 mmHg (80.0-100.0) L 12/05/22 10:43 ABG HCO3 22.2 mmol/L (22-26) 12/05/22 10:43 ABG O2 Saturation 83.0 % (90-100) L* 12/05/22 10:43 ABG Base Excess -3.8 mmol/L (-2.0-2.0) L 12/05/22 10:43 Bert Test N/a 12/05/22 10:43 A-a Gradient 44.0 mmHg 12/05/22 10:43 FiO2 21.0 12/05/22 10:43 Blood Gas Comments Pt israel well elj 12/05/22 10:43 Sodium 136 mmol/L (136-145) 12/08/22 04:20 Corrected Sodium 136 mmol/L (136-145) 12/08/22 04:20 Potassium 4.5 mmol/L (3.5-5.1) 12/08/22 04:20 Chloride 104 mmol/L (98-107) 12/08/22 04:20 Carbon Dioxide 28.5 mmol/L (21-32) 12/08/22 04:20 BUN 6 mg/dL (7-18) L 12/08/22 04:20 Creatinine 0.98 mg/dL (0.55-1.02) 12/08/22 04:20 Est GFR (MDRD) Af Amer > 60 (>60) 12/08/22 04:20 Est GFR (MDRD) Non-Af 59 (>60) 12/08/22 04:20 Glucose 120 mg/dL (65-99) H 12/08/22 04:20 Calcium 7.6 mg/dL (8.5-10.1) L 12/08/22 04:20 Corrected Calcium 9.0 mg/dL (8.5-10.1) 12/08/22 04:20 Magnesium 2.1 mg/dL (2.0-2.9) 12/07/22 04:15 Total Bilirubin 0.30 mg/dL (0.2-1.0) 12/08/22 04:20 AST 13 Units/L (15-37) L 12/08/22 04:20 ALT 12 Units/L (12-78) 12/08/22 04:20 Alkaline Phosphatase 108 Units/L (46-116) 12/08/22 04:20 Creatine Kinase 126 Units/L (26-192) 12/05/22 10:56 Troponin I High Sens 11.2 ng/L (4.0-60.0) 12/05/22 10:56 B-Natriuretic Peptide 34.5 pg/mL (0-79) 12/05/22 10:56 Total Protein 5.5 g/dL (6.4-8.2) L 12/08/22 04:20 Albumin 2.2 g/dL (3.4-5.0) L 12/08/22 04:20 Globulin 3.3 g/dL (2.5-4.5) 12/08/22 04:20 Albumin/Globulin Ratio 0.7 Ratio (1.1-2.1) L 12/08/22 04:20 Lipase 43 Units/L (73-393) L 12/05/22 10:56 Free T4 1.42 ng/dL (0.76-1.46) 12/05/22 10:56 TSH 3rd Generation 3.928 uIU/mL (0.358-3.74) H 12/05/22 10:56 Specimen Type Clean catch urine 12/05/22 13:07 Urine Color Pale yellow (YELLOW) 12/05/22 13:07 Urine Appearance Clear (CLEAR) 12/05/22 13:07 Urine pH 5.0 (5.0 - 8.0) 12/05/22 13:07 Ur Specific [place] 1.005 (1.000-1.030) 12/05/22 13:07 Urine Protein 1+ (NEGATIVE) 12/05/22 13:07 Urine Glucose (UA) Negative (NEGATIVE) 12/05/22 13:07 Urine Ketones Negative (NEGATIVE) 12/05/22 13:07 Urine Blood Negative (NEGATIVE) 12/05/22 13:07 Urine Nitrite Negative (NEGATIVE) 12/05/22 13:07 Urine Bilirubin Negative (NEGATIVE) 12/05/22 13:07 Urine Urobilinogen Normal (NORMAL) 12/05/22 13:07 Ur Leukocyte Esterase 1+ (NEGATIVE) 12/05/22 13:07 Urine RBC 0-2 /HPF (0-3) 12/05/22 13:07 Urine WBC 5-10 /HPF (0-5) A 12/05/22 13:07 Ur Squamous Epith Cells Few /HPF (NEGATIVE) 12/05/22 13:07 Urine Bacteria Trace /HPF (NEGATIVE) 12/05/22 13:07 Ur Culture Indicated? No/not indicated 12/05/22 13:07 SARS-CoV-2 (PCR) Negative (NEGATIVE) 12/05/22 11:20 Influenza Type A (PCR) Negative (NEGATIVE) 12/05/22 11:20 Influenza Type B (PCR) Negative (NEGATIVE) 12/05/22 11:20 RSV (PCR) Negative (NEGATIVE) 12/05/22 11:20 - Plan (1) Bronchopneumonia Status: Acute Plan: SUPPLEMENTAL OXYGEN, NORMAL SALINE AT 125 ML/HR, LEVAQUIN 500MG IV DAILY, DUONEBS TID. HER HOME MEDICATIONS OF LIPITOR 20MG DAILY, PERIACTIN 4MG HS, CYMBALTA 30MG DAILY, DURAGESIC PATCH Q72H, NORCO 7.5/325MG Q6H PRN, ZOFRAN 4MG PO Q8H PRN, AND PREDISONE 10MG DAILY (2) Hypoxia Status: Acute (3) Dehydration Status: Acute (4) Hyponatremia Status: Acute (5) Hypotension Status: Acute Qualifiers: Hypotension type: unspecified hypotension type Qualified Code(s): I95.9 - Hypotension, unspecified (6) GERD (gastroesophageal reflux disease) Status: Acute Qualifiers: Esophagitis presence: esophagitis presence not specified Qualified Code(s): K21.9 - Gastro-esophageal reflux disease without esophagitis (7) Anemia Status: Acute Qualifiers: Anemia type: unspecified type Qualified Code(s): D64.9 - Anemia, unspecified (8) Gastroesophageal reflux disease Status: None (9) CAD (coronary artery disease) Status: Acute Qualifiers: Coronary Disease-Associated Artery/Lesion type: bypass graft [place] vs. transplanted heart: [place] heart Associated angina: unspecified whether angina present Qualified Code(s): I25.810 - Atherosclerosis of coronary artery bypass graft(s) without angina pectoris
[2022-12-08] MEDS: ROBITUSSIN DM PO PRN (15:44)
[2022-12-08] MEDS: CHECK PATCH XX SCH (21:15)
[2022-12-08] MEDS: COLACE CAP 100 MG PO SCH (21:16)
[2022-12-08] MEDS: PERIACTIN TAB 4 MG PO SCH (21:16)
[2022-12-08] MEDS: DURAGESIC 100 mcg/HR PATCH TD SCH (21:17)
[2022-12-09] MEDS: NS 1,000 ML IV 1,000 ML IV SCH ×3 (02:41→16:01)
[2022-12-09] MEDS: NORCO 7.5/325 MG TAB PO PRN (02:41)
[2022-12-09 05:04] LABS: BASOPHILS % (AUTO) 0.3 % (0.2-1.0); EOSINOPHILS # (AUTO) 0.1 x10^3/uL (0.0-0.2); EOSINOPHILS % (AUTO) 1.5 % (0.9-2.9); HEMOGLOBIN 10.1 g/dL (12.0-16.0); LYMPHOCYTES # (AUTO) 1.1 X10^3/uL (1.3-2.9); LYMPHOCYTES % (AUTO) 19.7 % (21.0-51.0); MEAN CORPUSCULAR HEMOGLOBIN 29.2 pg (27.0-34.0); MEAN CORPUSCULAR HGB CONC 33.7 g/dL (33.0-35.0); MEAN CORPUSCULAR VOLUME 86.5 fL (80.0-100.0); MEAN PLATELET VOLUME 7.1 fL (7.4-11.0); MONOCYTES # (AUTO) 0.5 x10^3/uL (0.3-0.8); MONOCYTES % (AUTO) 9.2 % (0.0-13.0); NEUTROPHILS % (AUTO) 69.3 % (42.0-75.0); RED BLOOD COUNT 3.46 X10^6/uL (3.5-5.4); RED CELL DISTRIBUTION WIDTH 14.8 % (11.6-16.5); WHITE BLOOD COUNT 5.8 X10^3/uL (3.6-10.0)
[2022-12-09 05:13] LABS: ALANINE AMINOTRANSFERASE 10 Units/L (12-78); ALBUMIN 2.1 g/dL (3.4-5.0); ALKALINE PHOSPHATASE 109 Units/L (46-116); ASPARTATE AMINO TRANSFERASE 13 Units/L (15-37); BLOOD UREA NITROGEN 7 mg/dL (7-18); CALCIUM 7.6 mg/dL (8.5-10.1); CARBON DIOXIDE 31.1 mmol/L (21-32); CHLORIDE 103 mmol/L (98-107); COR CA(FOR HYPOALB) 9.1 mg/dL (8.5-10.1); CREATININE 1.03 mg/dL (0.55-1.02); SODIUM 136 mmol/L (136-145); TOTAL PROTEIN 5.4 g/dL (6.4-8.2); eGFR NON BLACK RACES 55 (>60)
[2022-12-09] MEDS: NEURONTIN TAB 600 MG PO SCH ×3 (05:20→21:41)
[2022-12-09] MEDS: DUONEB 0.5 MG/3 MG (3 mL) NEB SCH ×4 (06:12→20:59)
--- NOTE | 2022-12-09 07:44 | RAD ---
HISTORYSOBSTUDYPortable AP chestCOMPARISONApril 2022FINDINGSThere is no change in appearance of heart, lungs or mediastinum. There is no evidence for developing pneumonia, pulmonary edema or pleural fluid.IMPRESSIONNo change.Electronically signed by: KATHY REICH (Dec 09, 2022 07:37:40)
[2022-12-09] MEDS: MILK OF MAGNESIA PO SCH (09:15)
[2022-12-09] MEDS: COLACE CAP 100 MG PO SCH ×2 (09:15→21:41)
[2022-12-09] MEDS: LEVAQUIN PREMIX IV 500 MG 500 MG/100 ML BAG IV SCH (09:15)
[2022-12-09] MEDS: PLAVIX PO SCH (09:16)
[2022-12-09] MEDS: PREDNISONE TAB 10 MG PO SCH (09:16)
[2022-12-09] MEDS: LOVENOX INJ 40 MG SYR SC SCH (09:16)
[2022-12-09] MEDS: LIPITOR TAB 20 MG PO SCH (09:16)
[2022-12-09] MEDS: CYMBALTA PO SCH (09:16)
[2022-12-09] MEDS: PEPCID TAB 20 MG PO SCH ×2 (09:16→21:42)
--- NOTE | 2022-12-09 11:14 | PCM.PROG ---
Progress Note - Progress Note for Day of Date of Exam: 12/09/22 - Subjective Subjective: IS CURRENTLY OBSERVATION STATUS FOR TREATMENT OF BRONCHOPNEUMONIA, HYPOXIA, DEHYDRATION, HYPONATREMIA, AND HYPOTENSION. SHE HAS A PMH OF ANEMIA, ANXIETY, CAD, DEPRESSION, DYSLIPIDEMIA, GERD, HTN, SLEEP APNEA, RHEUMATOID ARTHRITIS, DIVERTICULITIS, HERNIA, ANEURYSM OF INFRARENAL ABDOMINAL AORTA, AORTIC ANEURYSM, RLS, THYROID NODULE. TODAY, SHE IS ALERT AND ORIENTED, LYING IN BED ON MORNING ROUNDS. SHE IS ABLE TO ANSWER QUESTIONS AND FOLLOW COMMANDS APPROPRIATELY. SHE CONTINUES TO COMPLAIN OF COUGH AND GENERALIZED WEAKNESS. ADDITIONALLY, SHE COMPLAINS OF SOME HIP PAIN FOLLOWING A FALL IN HER ROOM ON THURSDAY AND LEFT ARM PAIN AND SWELLING. SHE ALSO HIT HER HEAD AT THAT TIME. SHE DENIES ANY EPISODES OF NAUSEA OR VOMITING THIS MORNING. HER COUGH HAS BEEN NON-PRODUCTIVE. ON EXAMINATION, HEART IS REGULAR IN RATE AND RHYTHM. BILATERAL LUNGS ARE NOTED WITH SCATTERED WHEEZES. ABDOMEN IS ROUND, SOFT, AND NON-TENDER WITH NORMAL BOWEL SOUNDS NOTED IN ALL QUADRANTS. GOOD MOVEMENT NOTED IN ALL EXTREMITIES. THERE IS SOME TENDERNESS AND SWELLING NOTED TO THE LEFT ARM. HER VITALS THIS MORNING ARE: 98.1-100-20-94%-158/64. LABS WERE OBTAINED. WBC 5.8, RBC 3.46, HGB 10.1, HCT 30.0, PLT COUNT 270, SODIUM 136, POTASSIUM 4.5, CHLORIDE 103, BUN 7, CREATININE 1.03, AST 13, ALT 10, ALK PHOS 109, TOTAL PROTEIN 5.4, ALBUMIN 2.1. BLOOD CULTURES ARE PENDING. SHE IS CURRENTLY RECEIVING NORMAL SALINE AT 125 ML/HR, LEVAQUIN 500MG IV DAILY, DUONEBS TID. HER HOME MEDICATIONS OF LIPITOR 20MG DAILY, PERIACTIN 4MG HS, CYMBALTA 30MG DAILY, DURAGESIC PATCH Q72H, NORCO 7.5/325MG Q6H PRN, ZOFRAN 4MG PO Q8H PRN, AND PREDNISONE 10MG DAILY. TODAY, WE WILL ADD TORADOL 15MG IV Q8H AND PROTONIX 40MG IV DAILY. WE WILL OBTAIN A VENOUS DOPPLER OF THE LEFT UPPER EXTREMITY. OTHERWISE, WE WILL FOLLOW-UP WITH AM LABS AND CONTINUE TO MONITOR. TIME SPENT ON CLINICAL ASSESSMENT, REVIWING LABS AND IMAGING, DECISION MAKING, AND DOCUMENTATION GREATER THAN 45 MINUTES. - Past Medical Family Social History Past Med/Fam/Surg Hx: No changes since H&P Allergies: Allergies No Known Drug Allergies Allergy (Unknown, Verified 10/27/22 08:55) Onset Date: 12/31/2011 - Review of Systems ROS: No change since H&P - Vital Signs and I&O's Vital Signs: Temperature 98.1 F Pulse Rate [Brachial] 106 Pulse Rate 97 Respiratory Rate 20 Blood Pressure [Right Arm] 132/86 Blood Pressure [Left Arm] 158/64 Blood Pressure 136/78 O2 Sat by Pulse Oximetry 94 Intake and Output: Intake & Output 12/06/22 12/07/22 12/08/22 12/09/22 11:59 11:59 11:59 11:59 Intake Total 1438 / 1438 4818 / 4818 6031 / 6031 4014 / 4014 Output Total Balance 1429 / 1429 4815 / 4815 6031 / 6031 4014 / 4014 - Physical Exam Oriented: Normal Eyes: Normal Ear: Normal Nose: Normal Throat: Normal Respiratory: Wheezes Cardiovascular: Normal : Normal Auscultation: Bowel Sounds: Normal Palpation: Normal Tenderness: Normal Skin: Normal Musculoskeletal: Normal Psychiatric: Normal Mood Description: Calm Affect: Normal Speech Pattern: Clear, Appropriate - Laboratory and Diagnostics Result Diagrams: 12/09/22 04:30 12/09/22 04:30 Labs: 12/06/22 16:10 Blood Blood Culture - Preliminary 12/06/22 16:05 Blood Blood Culture - Preliminary Laboratory WBC 5.8 X10^3/uL (3.6-10.0) 12/09/22 04:30 RBC 3.46 X10^6/uL (3.5-5.4) L 12/09/22 04:30 Hgb 10.1 g/dL (12.0-16.0) L 12/09/22 04:30 Hct 30.0 % (36.0-47.0) L 12/09/22 04:30 MCV 86.5 fL (80.0-100.0) 12/09/22 04:30 MCH 29.2 pg (27.0-34.0) 12/09/22 04:30 MCHC 33.7 g/dL (33.0-35.0) 12/09/22 04:30 RDW 14.8 % (11.6-16.5) 12/09/22 04:30 Plt Count 270 X10^3/uL (150.0-450.0) 12/09/22 04:30 Plt Count Comment Adequate (ADEQUATE) 12/05/22 10:56 MPV 7.1 fL (7.4-11.0) L 12/09/22 04:30 Neut % (Auto) 69.3 % (42.0-75.0) 12/09/22 04:30 Lymph % (Auto) 19.7 % (21.0-51.0) L 12/09/22 04:30 [place] % (Auto) 9.2 % (0.0-13.0) 12/09/22 04:30 Eos % (Auto) 1.5 % (0.9-2.9) 12/09/22 04:30 Baso % (Auto) 0.3 % (0.2-1.0) 12/09/22 04:30 Neut # (Auto) 4.0 x10^3/uL (2.2-4.8) 12/09/22 04:30 Lymph # (Auto) 1.1 X10^3/uL (1.3-2.9) L 12/09/22 04:30 [place] # (Auto) 0.5 x10^3/uL (0.3-0.8) 12/09/22 04:30 Eos # (Auto) 0.1 x10^3/uL (0.0-0.2) 12/09/22 04:30 Baso # (Auto) 0.0 X10^3/uL (0.0-0.1) 12/09/22 04:30 Absolute Nucleated RBC 0.0 /100WBC 12/09/22 04:30 Total Counted 100 12/05/22 10:56 Neutrophils % (Manual) 66 % (39-76) 12/05/22 10:56 Lymphocytes % (Manual) 22 % (13-43) 12/05/22 10:56 Monocytes % (Manual) 10 % (4-9) H 12/05/22 10:56 Eosinophils % (Manual) 2 % (0-6) 12/05/22 10:56 Plt Morphology Comment Normal (NORMAL) 12/05/22 10:56 RBC Morphology Normal (NORMAL) 12/05/22 10:56 Sample Site Rbra 12/05/22 10:43 ABG pH 7.320 (7.35-7.45) L 12/05/22 10:43 ABG pCO2 43.0 mmHg (35.0-45.0) 12/05/22 10:43 ABG pO2 52.0 mmHg (80.0-100.0) L 12/05/22 10:43 ABG HCO3 22.2 mmol/L (22-26) 12/05/22 10:43 ABG O2 Saturation 83.0 % (90-100) L* 12/05/22 10:43 ABG Base Excess -3.8 mmol/L (-2.0-2.0) L 12/05/22 10:43 Bert Test N/a 12/05/22 10:43 A-a Gradient 44.0 mmHg 12/05/22 10:43 FiO2 21.0 12/05/22 10:43 Blood Gas Comments Pt [place] well elj 12/05/22 10:43 Sodium 136 mmol/L (136-145) 12/09/22 04:30 Corrected Sodium TNP 12/09/22 04:30 Potassium 4.5 mmol/L (3.5-5.1) 12/09/22 04:30 Chloride 103 mmol/L (98-107) 12/09/22 04:30 Carbon Dioxide 31.1 mmol/L (21-32) 12/09/22 04:30 BUN 7 mg/dL (7-18) 12/09/22 04:30 Creatinine 1.03 mg/dL (0.55-1.02) H 12/09/22 04:30 Est GFR (MDRD) Af Amer > 60 (>60) 12/09/22 04:30 Est GFR (MDRD) Non-Af 55 (>60) L 12/09/22 04:30 Glucose 99 mg/dL (65-99) 12/09/22 04:30 Calcium 7.6 mg/dL (8.5-10.1) L 12/09/22 04:30 Corrected Calcium 9.1 mg/dL (8.5-10.1) 12/09/22 04:30 Magnesium 2.1 mg/dL (2.0-2.9) 12/07/22 04:15 Total Bilirubin 0.20 mg/dL (0.2-1.0) 12/09/22 04:30 AST 13 Units/L (15-37) L 12/09/22 04:30 ALT 10 Units/L (12-78) L 12/09/22 04:30 Alkaline Phosphatase 109 Units/L (46-116) 12/09/22 04:30 Creatine Kinase 126 Units/L (26-192) 12/05/22 10:56 Troponin I High Sens 11.2 ng/L (4.0-60.0) 12/05/22 10:56 B-Natriuretic Peptide 34.5 pg/mL (0-79) 12/05/22 10:56 Total Protein 5.4 g/dL (6.4-8.2) L 12/09/22 04:30 Albumin 2.1 g/dL (3.4-5.0) L 12/09/22 04:30 Globulin 3.3 g/dL (2.5-4.5) 12/09/22 04:30 Albumin/Globulin Ratio 0.6 Ratio (1.1-2.1) L 12/09/22 04:30 Lipase 43 Units/L (73-393) L 12/05/22 10:56 Free T4 1.42 ng/dL (0.76-1.46) 12/05/22 10:56 TSH 3rd Generation 3.928 uIU/mL (0.358-3.74) H 12/05/22 10:56 Specimen Type Clean catch urine 12/05/22 13:07 Urine Color Pale yellow (YELLOW) 12/05/22 13:07 Urine Appearance Clear (CLEAR) 12/05/22 13:07 Urine pH 5.0 (5.0 - 8.0) 12/05/22 13:07 Ur Specific [place] 1.005 (1.000-1.030) 12/05/22 13:07 Urine Protein 1+ (NEGATIVE) 12/05/22 13:07 Urine Glucose (UA) Negative (NEGATIVE) 12/05/22 13:07 Urine Ketones Negative (NEGATIVE) 12/05/22 13:07 Urine Blood Negative (NEGATIVE) 12/05/22 13:07 Urine Nitrite Negative (NEGATIVE) 12/05/22 13:07 Urine Bilirubin Negative (NEGATIVE) 12/05/22 13:07 Urine Urobilinogen Normal (NORMAL) 12/05/22 13:07 Ur Leukocyte Esterase 1+ (NEGATIVE) 12/05/22 13:07 Urine RBC 0-2 /HPF (0-3) 12/05/22 13:07 Urine WBC 5-10 /HPF (0-5) A 12/05/22 13:07 Ur Squamous Epith Cells Few /HPF (NEGATIVE) 12/05/22 13:07 Urine Bacteria Trace /HPF (NEGATIVE) 12/05/22 13:07 Ur Culture Indicated? No/not indicated 12/05/22 13:07 SARS-CoV-2 (PCR) Negative (NEGATIVE) 12/05/22 11:20 Influenza Type A (PCR) Negative (NEGATIVE) 12/05/22 11:20 Influenza Type B (PCR) Negative (NEGATIVE) 12/05/22 11:20 RSV (PCR) Negative (NEGATIVE) 12/05/22 11:20 - Plan (1) Bronchopneumonia Status: Acute Plan: SUPPLEMENTAL OXYGEN, NORMAL SALINE AT 125 ML/HR, LEVAQUIN 500MG IV DAILY, DUONEBS TID. HER HOME MEDICATIONS OF LIPITOR 20MG DAILY, PERIACTIN 4MG HS, CYMBALTA 30MG DAILY, DURAGESIC PATCH Q72H, NORCO 7.5/325MG Q6H PRN, ZOFRAN 4MG PO Q8H PRN, AND PREDISONE 10MG DAILY (2) Hypoxia Status: Acute (3) Dehydration Status: Acute (4) Hyponatremia Status: Acute (5) Hypotension Status: Acute Qualifiers: Hypotension type: unspecified hypotension type Qualified Code(s): I95.9 - Hypotension, unspecified (6) GERD (gastroesophageal reflux disease) Status: Acute Qualifiers: Esophagitis presence: esophagitis presence not specified Qualified Code(s): K21.9 - Gastro-esophageal reflux disease without esophagitis (7) Anemia Status: Acute Qualifiers: Anemia type: unspecified type Qualified Code(s): D64.9 - Anemia, unspecified (8) Gastroesophageal reflux disease Status: None Qualifiers: Esophagitis presence: esophagitis presence not specified Qualified Code(s): K21.9 - Gastro-esophageal reflux disease without esophagitis (9) CAD (coronary artery disease) Status: Acute Qualifiers: Coronary Disease-Associated Artery/Lesion type: bypass graft [place] vs. transplanted heart: [place] heart Associated angina: unspecified whether angina present Qualified Code(s): I25.810 - Atherosclerosis of coronary artery bypass graft(s) without angina pectoris
[2022-12-09] MEDS ORDERED: TORADOL 15 MG VIAL IVP SCH (12:00)
[2022-12-09] MEDS: PROTONIX INJ 40 MG VIAL IVP SCH (12:08)
--- NOTE | 2022-12-09 13:26 | VAS ---
UPPER EXT VENOUS, UNILATERALHISTORY: SwellingComparison:NoneTECHNIQUE: Multiple davis scale and color flow Doppler images of the deep venous system were obtained of the left upper extremity.FINDINGS:The deep venous system of the left upper extremity were evaluated from the level of the internal jugular vein through the antecubital fossa. Normal color flow and augmentation can be observed .In addition, normal compression is seen throughout the deep venous system.IMPRESSION:1.Negative for DVT.Electronically signed by: CINTIA TRENT (Dec 09, 2022 13:25:13)
[2022-12-09] MEDS ORDERED: TORADOL TAB PO ONE (21:38)
[2022-12-09] MEDS: TORADOL TAB PO SCH (21:41)
[2022-12-09] MEDS: PERIACTIN TAB 4 MG PO SCH (21:42)
[2022-12-09] MEDS: CHECK PATCH XX SCH (21:43)
[2022-12-10] MEDS: NS 1,000 ML IV 1,000 ML IV SCH ×2 (00:26→09:54)
[2022-12-10 06:06] LABS: BASOPHILS % (AUTO) 0.5 % (0.2-1.0); EOSINOPHILS # (AUTO) 0.1 x10^3/uL (0.0-0.2); EOSINOPHILS % (AUTO) 1.2 % (0.9-2.9); HEMATOCRIT 32.4 % (36.0-47.0); HEMOGLOBIN 10.8 g/dL (12.0-16.0); LYMPHOCYTES # (AUTO) 1.3 X10^3/uL (1.3-2.9); LYMPHOCYTES % (AUTO) 23.7 % (21.0-51.0); MEAN CORPUSCULAR HEMOGLOBIN 28.9 pg (27.0-34.0); MEAN CORPUSCULAR HGB CONC 33.2 g/dL (33.0-35.0); MEAN CORPUSCULAR VOLUME 87.1 fL (80.0-100.0); MEAN PLATELET VOLUME 6.5 fL (7.4-11.0); MONOCYTES # (AUTO) 0.6 x10^3/uL (0.3-0.8); MONOCYTES % (AUTO) 10.3 % (0.0-13.0); NEUTROPHILS # (AUTO) 3.5 x10^3/uL (2.2-4.8); NEUTROPHILS % (AUTO) 64.3 % (42.0-75.0); RED BLOOD COUNT 3.73 X10^6/uL (3.5-5.4); RED CELL DISTRIBUTION WIDTH 14.9 % (11.6-16.5); WHITE BLOOD COUNT 5.4 X10^3/uL (3.6-10.0)
[2022-12-10] MEDS: NEURONTIN TAB 600 MG PO SCH (06:11)
[2022-12-10] MEDS: DUONEB 0.5 MG/3 MG (3 mL) NEB SCH (06:12)
[2022-12-10] MEDS: TORADOL TAB PO SCH (06:12)
[2022-12-10 06:34] LABS: ALANINE AMINOTRANSFERASE 8 Units/L (12-78); ALBUMIN 2.3 g/dL (3.4-5.0); ALKALINE PHOSPHATASE 108 Units/L (46-116); ASPARTATE AMINO TRANSFERASE 12 Units/L (15-37); BLOOD UREA NITROGEN 10 mg/dL (7-18); CALCIUM 8.3 mg/dL (8.5-10.1); CARBON DIOXIDE 28.2 mmol/L (21-32); CHLORIDE 103 mmol/L (98-107); COR CA(FOR HYPOALB) 9.7 mg/dL (8.5-10.1); CREATININE 1.05 mg/dL (0.55-1.02); SODIUM 137 mmol/L (136-145); eGFR NON BLACK RACES 54 (>60)
--- NOTE | 2022-12-10 07:20 | RAD ---
HISTORYShortness of breathSTUDYChest AP [id number]/18/2023FINDINGSPati ent is status post median sternotomy and CABG. Heart is enlarged. No congestive heart failure is noted. Aorta is calcified and mildly ectatic but unchanged. Lung palacios are clear. Bony thorax is unremarkable.IMPRESSIONNo change cardiomegaly without congestive heart failureNo acute infiltratesElectronically signed by: TIBURCIO PERLA (Dec 10, 2022 07:19:20)
[2022-12-10] MEDS: LOVENOX INJ 40 MG SYR SC SCH (08:23)
[2022-12-10] MEDS: LIPITOR TAB 20 MG PO SCH (08:25)
[2022-12-10] MEDS: COLACE CAP 100 MG PO SCH (08:25)
[2022-12-10] MEDS: PREDNISONE TAB 10 MG PO SCH (08:25)
[2022-12-10] MEDS: PEPCID TAB 20 MG PO SCH (08:26)
[2022-12-10] MEDS: CYMBALTA PO SCH (08:26)
[2022-12-10] MEDS: MILK OF MAGNESIA PO SCH (08:26)
[2022-12-10] MEDS: NORCO 7.5/325 MG TAB PO PRN (08:29)
[2022-12-10] MEDS: PROTONIX INJ 40 MG VIAL IVP SCH (09:54)
[2022-12-10] MEDS: LEVAQUIN PREMIX IV 500 MG 500 MG/100 ML BAG IV SCH (09:54)
[2022-12-10] MEDS: PLAVIX PO SCH (09:59)
[2022-12-10 11:29] VITALS: BP 174/87
== END 2022-12-10 11:55 | disposition home or self-care (01) ==
LOC: ICU 10:27 → ER 10:27 → ICU 15:40 → MED/SURG 12-08 14:42
PROVIDERS: ADMIT Internal Medicine; ATTEND Internal Medicine
DX: R11.2 Nausea with vomiting, unspecified; R94.31 Abnormal electrocardiogram [ECG] [EKG]; N39.0 Urinary tract infection, site not specified; E87.1 Hypo-osmolality and hyponatremia; I95.89 Other hypotension; J18.0 Bronchopneumonia, unspecified organism; M06.80 Other specified rheumatoid arthritis, unspecified site; R00.0 Tachycardia, unspecified; R06.02 Shortness of breath; E78.2 Mixed hyperlipidemia; I25.810 Atherosclerosis of coronary artery bypass graft(s) without angina pectoris; I10 Essential (primary) hypertension; D64.89 Other specified anemias; Z20.822 Contact with and (suspected) exposure to COVID-19; I67.2 Cerebral atherosclerosis; E86.0 Dehydration; K21.9 Gastro-esophageal reflux disease without esophagitis; R53.1 Weakness